=== PATIENT | female | born 1945 | race Two or more races ===

== ENCOUNTER 2016-10-25 10:40 | Emergency (ER) | payer MEDICARE, OTHER ==
--- NOTE | 2016-10-25 11:10 | ED ---
Upper Extremity HPI - General Chief Complaint: Extremity Injury, Upper Stated Complaint: VOLUNTEER, ARM INJURY Time Seen by Provider: 10/25/16 10:59 Source: patient, RN notes reviewed Mode of arrival: ambulatory Limitations: no limitations - History of Present Illness Initial Comments: 71-year-old female presents emergency Department chief complaint left arm injury. 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 Patient states she has a large area of bruising and pain when she presses on her arm. Patient states that she does take aspirin and a medication similar to Plavix she denies any Coumadin, Xarelto or LS or productive. Patient states she has full range of motion of her wrist and arm. Patient is applying ice at this time. - Related Data Home Medications Medication Instructions Recorded Confirmed Aspirin 81 mg PO DAILY 09/30/14 10/25/16 Cilostazol [Pletal] 100 mg PO BID 09/30/14 10/25/16 Simvastatin [Zocor] 40 mg PO W/SUPPER 09/30/14 10/25/16 Multivitamins, Thera [Theragran] 1 tab PO DAILY 07/12/15 10/25/16 Naproxen Sodium [Aleve] 220 mg PO BID PRN 07/12/15 10/25/16 Acetaminophen Tab [Tylenol Tab] 650 mg PO Q6H PRN 07/24/16 10/25/16 Atenolol [Tenormin] 50 mg PO DAILY 10/25/16 10/25/16 Allergies Allergy/AdvReac Type Severity Reaction Status Date / Time ciprofloxacin [From Cipro] Allergy Itching, Verified 10/25/16 11:19 rash ciprofloxacin HCl Allergy Itching, Verified 10/25/16 11:19 [From Cipro] rash RX FOR PSORIATIC ARTHRITIS AdvReac Severe COLD, Uncoded 07/24/16 11:46 SHIVERING, SHAKING Review of Systems ROS Statement: Those systems with pertinent positive or pertinent negative responses have been documented in the HPI. ROS Other: All systems not noted in ROS Statement are negative. Past Medical History Past Medical History: GERD/Reflux, Hyperlipidemia, Skin Disorder, Vascular Disorder Additional Past Medical History / Comment(s): PVD,ECZEMA,constipation, varicose veins, "intestinal blockage", arthritis, DVT-1999 History of Any Multi-Drug Resistant Organisms: None Reported Past Surgical History: Appendectomy, Cholecystectomy, Orthopedic Surgery, Tonsillectomy Additional Past Surgical History / Comment(s): PVD SURGERY-POST SURGERY HAD CLOT IN LEG AND DRAIN HAD TO BE INSERTED, left knee arthroscopy, radha carpal tunnel Past Anesthesia/Blood Transfusion Reactions: No Reported Reaction Past Psychological History: No Psychological Hx Reported Smoking Status: Former smoker Past Alcohol Use History: None Reported Additional Past Alcohol Use History / Comment(s): QUIT SMOKING 1999, STARTED SMOKING AT AGE 15 Past Drug Use History: None Reported - Past Family History Father Family Medical History: Cancer Additional Family Medical History / Comment(s): COLON CANCER Brother(s) Family Medical History: Coronary Artery Disease (CAD) Additional Family Medical History / Comment(s): EMPHYSEMA Mother Family Medical History: Dementia Additional Family Medical History / Comment(s): ALZHEIMERS General Exam Limitations: no limitations General appearance: alert, in no apparent distress Head exam: Present: atraumatic, normocephalic, normal inspection Respiratory exam: Present: normal lung sounds bilaterally. Absent: respiratory distress, wheezes, rales, rhonchi, stridor Cardiovascular Exam: Present: regular rate, normal rhythm, normal heart sounds. Absent: systolic murmur, diastolic murmur, rubs, gallop, clicks Extremities exam: Present: other (Left forearm there is a large hematoma noted there is mildly tender patient has full range of motion of left arm and wrist patient has good pronation and supination with no pain.) Skin exam: Present: warm, dry Course Vital Signs 10/25/16 10:55 Temperature 97.4 F L Pulse Rate 78 Respiratory 20 Rate Blood Pressure 128/73 O2 Sat by Pulse 99 Oximetry Medical Decision Making - Medical Decision Making 69-year-old female presented for left arm injury. Patient has a hematoma no acute fracture. Disposition Clinical Impression: Hematoma of arm Disposition: HOME SELF-CARE Condition: Stable Instructions: Hematoma (ED) Additional Instructions: Please return to the Emergency Department if symptoms worsen or any other concerns. Time of Disposition: 11:45
--- NOTE | 2016-10-25 11:26 | XR ---
Left forearm HISTORY: Trauma and pain 2 views of the left forearm No comparisons There is soft tissue swelling present. Bone mineralization is reduced. Alignment and joint spaces are maintained. IMPRESSION: No fracture or dislocation. Soft tissue swelling.
[2016-10-25 12:19] VITALS: BP 156/67; PULSE 66; RESP 18; TEMP 98.5
== END 2016-10-25 12:20 | disposition home or self-care (01) ==
LOC: EC 10:40
DX: S50.12XA Contusion of left forearm, initial encounter (principal); E78.5 Hyperlipidemia, unspecified; Z86.718 Personal history of other venous thrombosis and embolism; Z87.891 Personal history of nicotine dependence; Z79.82 Long term (current) use of aspirin; Z79.899 Other long term (current) drug therapy; Z88.1 Allergy status to other antibiotic agents; Z88.8 Allergy status to other drugs, medicaments and biological substances; W22.8XXA Striking against or struck by other objects, initial encounter
CPT/HCPCS: 99283

== ENCOUNTER → 2017-06-10 | Outpatient (CLI) | payer MEDICARE ==
--- NOTE | 2017-06-10 09:40 | MM ---
Reason for exam: additional evaluation requested from prior study. Last mammogram was performed 11 months ago. History: Patient is postmenopausal. Excisional biopsy of the left breast, 2005. Physical Findings: Nurse did not find any significant physical abnormalities on exam. MG 3D Diag Mammo W/Cad ALIRIO Bilateral CC and MLO view(s) were taken. Prior study comparison: July 02, 2016, left breast MG 3d diag mammo w/cad LT. December 30, 2015, bilateral MG diagnostic mammo w CAD ALIRIO. The breast tissue is heterogeneously dense. This may lower the sensitivity of mammography. Stable benign calcifications. No significant new findings when compared with previous films. These results were verbally communicated with the patient and result sheet given to the patient on 06/10/17. ASSESSMENT: Benign, BI-RAD 2 RECOMMENDATION: Routine screening mammogram of both breasts in 1 year.
== END | disposition home or self-care (01) ==
LOC: RADMAMWWP 08:50
PROVIDERS: ATTEND Family Medicine
DX: N63.0 Unspecified lump in unspecified breast (principal)
CPT/HCPCS: G0204; G0279

== ENCOUNTER 2017-10-03 10:08 | Day surgery (SDC) | payer MEDICARE ==
[2017-10-01 13:35] VITALS: BMI 27.8
[~2017-10-03 10:08] MED LIST: LACTATED RINGERS 1,000 ML IV SCH
[2017-10-03 11:05] VITALS: RESP 16; TEMP 98.1
[2017-10-03] MEDS ORDERED: LIDOCAINE 1% 20 ML VIAL (10MG/ML) FOR IV START INTRADERMA ONE (11:29)
[2017-10-03] MEDS ORDERED: PROPOFOL 10 MG/ML 20 ML VIAL IV ONE (11:45)
[2017-10-03] MEDS ORDERED: LIDOCAINE 1% INJ 10MG/ML (20 ML MDV) ONE (11:45)
--- NOTE | 2017-10-03 11:50 | P.GSHP ---
History of Present Illness H&P Date: 10/03/17 Chief Complaint: GI bleed, GERD This is a 72-year-old female for from Dr. Mccollum. Patient is today for EGD and colonoscopy. She has issues with GERD and GI bleed. 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 on legs History of Any Multi-Drug Resistant Organisms: None Reported Past Surgical History: Appendectomy, Cholecystectomy, Orthopedic Surgery, Tonsillectomy Additional Past Surgical History / Comment(s): stent radha legs, bypass surgery left legs-POST SURGERY HAD CLOT IN LEFT LEG AND DRAIN HAD TO BE INSERTED, left knee arthroscopy, radha carpal tunnel, radha cataracts Past Anesthesia/Blood Transfusion Reactions: No Reported Reaction Smoking Status: Former smoker - Past Family History Father Family Medical History: Cancer Additional Family Medical History / Comment(s): COLON CANCER Brother(s) Family Medical History: Coronary Artery Disease (CAD) Additional Family Medical History / Comment(s): EMPHYSEMA Mother Family Medical History: Dementia Additional Family Medical History / Comment(s): ALZHEIMERS Medications and Allergies Home Medications Medication Instructions Recorded Confirmed Type Aspirin 81 mg PO DAILY 09/30/14 10/01/17 History Cilostazol [Pletal] 100 mg PO BID 09/30/14 10/01/17 History Simvastatin [Zocor] 40 mg PO HS 09/30/14 10/01/17 History Multivitamins, Thera [Theragran] 1 tab PO HS 07/12/15 10/01/17 History Naproxen Sodium [Aleve] 220 mg PO BID PRN 07/12/15 10/01/17 History Cyanocobalamin [Vitamin B-12] 500 mcg PO DAILY 10/01/17 10/01/17 History Metoprolol Tartrate 25 mg PO HS 10/01/17 10/01/17 History amLODIPine [Norvasc] 10 mg PO DAILY 10/01/17 10/01/17 History Allergies Allergy/AdvReac Type Severity Reaction Status Date / Time ciprofloxacin [From Cipro] Allergy Itching, Verified 10/03/17 10:53 rash RX FOR PSORIATIC ARTHRITIS AdvReac Severe COLD, Uncoded 10/03/17 10:53 SHIVERING, SHAKING Surgical - Exam Vital Signs Temp Pulse Resp BP Pulse Ox 98.1 F 84 16 117/76 97 10/03/17 11:02 10/03/17 11:02 10/03/17 11:02 10/03/17 11:02 10/03/17 11:02 - General well developed, well nourished, no distress - Eyes PERRL - ENT normal pinna - Neck no masses - Respiratory normal expansion - Cardiovascular Rhythm: regular - Abdomen Abdomen: soft, non tender Assessment and Plan Assessment: GERD, GI bleed. We'll perform EGD and colonoscopy.
--- NOTE | 2017-10-03 12:02 | P.OP ---
Date of Procedure: 10/03/17 Preoperative Diagnosis: GERD GI bleed Postoperative Diagnosis: Antral gastritis Moderate size hiatal hernia Esophagitis Procedure(s) Performed: EGD Colonoscopy Anesthesia: MAC Surgeon: Andrew Patel Pathology: other (Antrum, esophagus) Condition: stable Disposition: PACU Description of Procedure: The patient's placed on the endoscopy table lateral position. She received IV sedation. The gastroscope placed oropharynx and passed in the esophagus and into the stomach. Scope was then placed through the pylorus. The first and second portion of the duodenum appeared normal. Scope was then brought back the antrum and this appeared mildly inflamed. A biopsies performed. The scope was then retroflexed and the remainder of the stomach appeared normal. There was a moderate size hiatal hernia. The GE junction was at 38 cm. The distal esophagus appeared mildly inflamed a biopsies performed. The proximal esophagus appeared normal. The scope was withdrawn for patient. Next digital rectal exam was performed. There is no abnormalities seen. The flexible colonoscope was then placed patient anus passed throughout the entire colon. The patient a previous colorectal anastomosis from a low anterior section. The anastomosis was visualized and appeared normal. Scope was then placed in the cecum. The cecum, ascending and transverse colon appeared normal. In the descending colon was a few scattered diverticula. Scope was then brought back the rectum and this appeared normal. Scope was withdrawn for patient.
[2017-10-03 12:29] VITALS: BP 115/66; PULSE 88
== END 2017-10-03 12:53 | disposition home or self-care (01) ==
LOC: ORWHC2ENDO 10:08
PROVIDERS: ATTEND Surgery
DX: K29.51 Unspecified chronic gastritis with bleeding (principal); K44.9 Diaphragmatic hernia without obstruction or gangrene; K21.0 Gastro-esophageal reflux disease with esophagitis; M19.90 Unspecified osteoarthritis, unspecified site; K57.30 Diverticulosis of large intestine without perforation or abscess without bleeding; E78.5 Hyperlipidemia, unspecified; I10 Essential (primary) hypertension; I73.9 Peripheral vascular disease, unspecified; Z86.718 Personal history of other venous thrombosis and embolism; Z90.49 Acquired absence of other specified parts of digestive tract; Z87.891 Personal history of nicotine dependence; Z80.0 Family history of malignant neoplasm of digestive organs; Z79.82 Long term (current) use of aspirin; Z79.899 Other long term (current) drug therapy; Z82.49 Family history of ischemic heart disease and other diseases of the circulatory system; Z98.0 Intestinal bypass and anastomosis status
CPT/HCPCS: 88305; 45378; 43239; J2001; J2704

== ENCOUNTER 2018-01-12 14:04 | Inpatient (IN) | payer MEDICARE ==
[2018-01-12] MEDS ORDERED: SODIUM CHLORIDE 0.9% 1,000 ML IV STA (14:50)
--- NOTE | 2018-01-12 14:53 | ED ---
General Adult HPI - General Chief complaint: GI Bleed Stated complaint: Poss Blood Clot Time Seen by Provider: 01/12/18 14:37 Source: patient, RN notes reviewed Mode of arrival: ambulatory Limitations: no limitations - History of Present Illness Initial comments: 72-year-old female presenting to the emergency room today with a chief complaint of dark stools. Patient does admit that last night she follow-up the family doctor for an upper respiratory infection. She states that she had blood work obtained. She states that she was told that she was anemic and given 2 units of blood. She states that since receiving blood she's had loose stools that have been dark over the last 2 days. Patient admitted to some dizziness but states that she has this every now and then. She denies any pain. Patient currently treated with antibiotics and steroids for upper respiratory infection. Denies any other complaints. Patient denies any recent fever, chills, shortness of breath, chest pain, back pain, abdominal pain, nausea or vomiting, numbness or tingling, dysuria or hematuria, constipation, headaches or visual changes, or any other complaints. - Related Data Home Medications Medication Instructions Recorded Confirmed Aspirin 81 mg PO DAILY 09/30/14 01/12/18 Cilostazol [Pletal] 100 mg PO BID 09/30/14 01/12/18 Simvastatin [Zocor] 40 mg PO DAILY 09/30/14 01/12/18 Multivitamins, Thera [Theragran] 1 tab PO DAILY 07/12/15 01/12/18 Cyanocobalamin [Vitamin B-12] 500 mcg PO DAILY 10/01/17 01/12/18 Metoprolol Tartrate 25 mg PO DAILY 10/01/17 01/12/18 amLODIPine [Norvasc] 10 mg PO DAILY 10/01/17 01/12/18 Azithromycin [Zithromax Z-pack] See Taper PO DAILY 01/12/18 01/12/18 Fluticasone/Vilanterol [Breo 1 puff INHALATION RT-DAILY 01/12/18 01/12/18 Ellipta 100-25 Mcg Inhaler] methylPREDNISolone Dose Pack See Taper PO DIRECTED 01/12/18 01/12/18 [Medrol Dose Pack] Allergies Allergy/AdvReac Type Severity Reaction Status Date / Time ciprofloxacin [From Cipro] Allergy Itching, Verified 01/12/18 14:42 rash RX FOR PSORIATIC ARTHRITIS AdvReac Severe COLD, Uncoded 01/12/18 14:18 SHIVERING, SHAKING Review of Systems ROS Statement: Those systems with pertinent positive or pertinent negative responses have been documented in the HPI. ROS Other: All systems not noted in ROS Statement are negative. Past Medical History Past Medical History: Blood Disorder, Deep Vein Thrombosis (DVT), GERD/Reflux, Hyperlipidemia, Hypertension, Skin Disorder, Vascular Disorder Additional Past Medical History / Comment(s): PVD,ECZEMA,constipation, varicose veins, "intestinal blockage", arthritis, DVT-2000 after bypass surgery on legs. HEART MURMUR. ANEMIA History of Any Multi-Drug Resistant Organisms: None Reported Past Surgical History: Appendectomy, Bowel Resection, Cholecystectomy, Orthopedic Surgery, Tonsillectomy Additional Past Surgical History / Comment(s): stent radha legs, bypass surgery left legs-POST SURGERY HAD CLOT IN LEFT LEG AND DRAIN HAD TO BE INSERTED, left knee arthroscopy, radha carpal tunnel, radha cataracts Past Anesthesia/Blood Transfusion Reactions: No Reported Reaction Past Psychological History: Anxiety Smoking Status: Former smoker Past Alcohol Use History: None Reported Past Drug Use History: None Reported - Past Family History Father Family Medical History: Cancer Additional Family Medical History / Comment(s): COLON CANCER Brother(s) Family Medical History: Coronary Artery Disease (CAD) Additional Family Medical History / Comment(s): EMPHYSEMA Mother Family Medical History: Dementia Additional Family Medical History / Comment(s): ALZHEIMERS General Exam - General Exam Comments Initial Comments: General: The patient is awake and alert, in no distress, and does not appear acutely ill. Eye: Pupils are equal, round and reactive to light, extra-ocular movements are intact. No nystagmus. There is normal conjunctiva bilaterally. No signs of icterus. Ears, nose, mouth and throat: There are moist mucous membranes and no oral lesions. Neck: The neck is supple, there is no tenderness or JVD. Cardiovascular: There is a regular rate and rhythm. No murmur, rub or gallop is appreciated. Respiratory: Lungs are clear to auscultation, respirations are non-labored, breath sounds are equal. No wheezes, stridor, rales, or rhonchi. Gastrointestinal: Soft, non-distended, non-tender abdomen without masses or organomegaly noted. There is no rebound or guarding present. No CVA tenderness. Musculoskeletal: Normal ROM, no tenderness. Strength 5/5. Sensation intact. Pulses equal bilaterally 2+. Neurological: A&O x 3. CN II-XII intact, There are no obvious motor or sensory deficits. Coordination appears grossly intact. Speech is normal. Skin: Skin is warm and dry and no rashes or lesions are noted. Psychiatric: Cooperative, appropriate mood & affect, normal judgment. : IT SPECIALIST ritual present for exam. Normal rectal tone. No bright red blood per rectum. Limitations: no limitations Course Vital Signs 01/12/18 01/12/18 01/12/18 14:15 16:02 16:12 Temperature 98.1 F Pulse Rate 104 H 100 Pulse Rate [ 99 Sitting] Pulse Rate [ 101 H Standing] Pulse Rate [ 98 Supine] Respiratory 18 18 Rate Blood Pressure 122/69 140/64 Blood Pressure 136/63 [Sitting] Blood Pressure 137/63 [Standing] Blood Pressure 129/59 [Supine] O2 Sat by Pulse 98 95 Oximetry Medical Decision Making - Medical Decision Making Patient's labs been reviewed does show hemoglobin 8.2. Patient is not feeling dizzy lightheaded at times. Orthostatics are negative here in The emergency room. Patient did have 2 units of blood given 2 days ago. Occult positive. Will be admitted to the hospital for GI bleed with consults to GI and hematology - Lab Data Result diagrams: 01/12/18 14:53 01/12/18 14:53 Lab Results 01/12/18 01/12/18 01/12/18 Range/Units 14:50 14:53 14:53 WBC 10.7 H (3.8-10.6) k/uL RBC 4.07 (3.80-5.40) m/uL Hgb 8.2 L D (11.4-16.0) gm/dL Hct 27.7 L (34.0-46.0) % MCV 68.1 L D (80.0-100.0) fL MCH 20.2 L (25.0-35.0) pg MCHC 29.7 L (31.0-37.0) g/dL RDW 23.4 H (11.5-15.5) % Plt Count 685 H (150-450) k/uL Neutrophils % 80 % Lymphocytes % 12 % Monocytes % 7 % Eosinophils % 0 % Basophils % 0 % Neutrophils # 8.5 H (1.3-7.7) k/uL Lymphocytes # 1.3 (1.0-4.8) k/uL Monocytes # 0.7 (0-1.0) k/uL Eosinophils # 0.0 (0-0.7) k/uL Basophils # 0.0 (0-0.2) k/uL Hypochromasia Marked Poikilocytosis Marked Anisocytosis Moderate Microcytosis Marked Sodium 144 (137-145) mmol/L Potassium 4.0 (3.5-5.1) mmol/L Chloride 103 (98-107) mmol/L Carbon Dioxide 25 (22-30) mmol/L Anion Gap 16 mmol/L BUN 9 (7-17) mg/dL Creatinine 0.60 (0.52-1.04) mg/dL Est GFR (CKD-EPI)AfAm >90 (>60 ml/min/1.73 sqM) Est GFR (CKD-EPI)NonAf >90 (>60 ml/min/1.73 sqM) Glucose 112 H (74-99) mg/dL Calcium 9.3 (8.4-10.2) mg/dL Total Bilirubin 0.3 (0.2-1.3) mg/dL AST 31 (14-36) U/L ALT 35 (9-52) U/L Alkaline Phosphatase 84 (38-126) U/L Total Protein 6.9 (6.3-8.2) g/dL Albumin 4.2 (3.5-5.0) g/dL Stool Occult Blood Positive H (Negative) Disposition Clinical Impression: GI bleed, Anemia Disposition: ADMITTED IP TO THIS [facility] Condition: Stable Instructions: Gastrointestinal Bleeding (ED) Is patient prescribed a controlled substance at d/c from ED?: No Referrals: Arvind Mccollum DO [Primary Care Provider] - 1-2 days Time of Disposition: 16:53
[2018-01-12 15:03] LABS: Anisocytosis Moderate; Basophils % (A) 0 %; Eosinophils % (A) 0 %; HCT 27.7 % (34.0-46.0); Hypochromasia Marked; Lymphocytes # (A) 1.3 k/uL (1.0-4.8); Lymphocytes % (A) 12 %; MCH 20.2 pg (25.0-35.0); MCHC 29.7 g/dL (31.0-37.0); Mean Platelet Volume 6.1; Microcytosis Marked; Monocytes # (A) 0.7 k/uL (0-1.0); Monocytes % (A) 7 %; Neutrophils # (A) 8.5 k/uL (1.3-7.7); Neutrophils % (A) 80 %; Platelet Count 685 k/uL (150-450); Poikilocytosis Marked; RBC 4.07 m/uL (3.80-5.40); RDW 23.4 % (11.5-15.5); WBC 10.7 k/uL (3.8-10.6)
[2018-01-12 15:06] LABS: HGB 8.2 gm/dL (11.4-16.0)
[2018-01-12 15:07] LABS: MCV 68.1 fL (80.0-100.0)
[2018-01-12 15:16] LABS: ALT 35 U/L (9-52); AST 31 U/L (14-36); Albumin 4.2 g/dL (3.5-5.0); Alkaline Phosphatase 84 U/L (38-126); Anion Gap 16 mmol/L; Blood Urea Nitrogen 9 mg/dL (7-17); Calcium 9.3 mg/dL (8.4-10.2); Carbon Dioxide 25 mmol/L (22-30); Chloride 103 mmol/L (98-107); Glucose 112 mg/dL (74-99); Sodium 144 mmol/L (137-145); Total Bilirubin 0.3 mg/dL (0.2-1.3); Total Protein 6.9 g/dL (6.3-8.2)
[2018-01-12] MEDS ORDERED: ONDANSETRON 4 MG/2 ML VIAL IVP PRN (16:48)
[2018-01-12] MEDS ORDERED: TEMAZEPAM 15 MG CAP PO PRN (16:48)
[2018-01-12] MEDS ORDERED: NALOXONE 0.4 MG/ML 1 ML VIAL IV PRN (16:48)
[2018-01-12] MEDS ORDERED: ACETAMINOPHEN TAB 325 MG TAB PO PRN (16:48)
[2018-01-12] MEDS ORDERED: LORazepam 2 MG/ML INJ IV PRN (16:48)
[2018-01-12] MEDS ORDERED: SODIUM CHLORIDE 0.9% 1,000 ML IV ONE (16:48)
[2018-01-12] MEDS ORDERED: PANTOPRAZOLE 40 MG/10 ML VIAL IVP STA (16:51)
[2018-01-12 18:01] VITALS: BMI 27.8
[2018-01-12 20:39] LABS: Appearance,Urine Clear (Clear); Bilirubin,Urine Negative (Negative); Blood,Urine Negative (Negative); Color,Urine Light Yellow; Glucose,Urine (UA) Negative (Negative); Ketones,Urine Negative (Negative); Leukocyte Esterase,Urine Negative (Negative); Nitrite,Urine Negative (Negative); Protein,Urine Negative (Negative); Specific Gravity,Urine 1.005 (1.001-1.035); Urobilinogen,Urine <2.0 mg/dL (<2.0)
[2018-01-12 21:19] LABS: Anisocytosis Marked; HCT 24.7 % (34.0-46.0); HGB 7.3 gm/dL (11.4-16.0); Hypochromasia Marked; MCH 20.2 pg (25.0-35.0); MCHC 29.6 g/dL (31.0-37.0); MCV 68.4 fL (80.0-100.0); Mean Platelet Volume 6.5; Microcytosis Marked; Platelet Count 500 k/uL (150-450); Poikilocytosis Marked; WBC 8.9 k/uL (3.8-10.6)
[2018-01-13] MEDS ORDERED: PANTOPRAZOLE 40 MG/10 ML VIAL IVP SCH (09:00)
[2018-01-13 09:13] LABS: Anisocytosis Moderate; Basophils % (A) 0 %; Eosinophils # (A) 0.1 k/uL (0-0.7); Eosinophils % (A) 1 %; HGB 7.9 gm/dL (11.4-16.0); Hypochromasia Marked; Lymphocytes # (A) 1.5 k/uL (1.0-4.8); Lymphocytes % (A) 22 %; MCH 19.7 pg (25.0-35.0); MCHC 28.1 g/dL (31.0-37.0); Mean Platelet Volume 6.4; Microcytosis Marked; Monocytes # (A) 0.5 k/uL (0-1.0); Monocytes % (A) 7 %; Neutrophils # (A) 4.4 k/uL (1.3-7.7); Neutrophils % (A) 67 %; Platelet Count 569 k/uL (150-450); Poikilocytosis Marked; RDW 23.8 % (11.5-15.5); WBC 6.6 k/uL (3.8-10.6)
[2018-01-13] MEDS ORDERED: PEG 3350-NA SULF,BICARB,CL/KCL 4,000 ML BOTTLE PO ONE (09:15)
[2018-01-13 09:42] LABS: ALT 44 U/L (9-52); AST 27 U/L (14-36); Albumin 3.6 g/dL (3.5-5.0); Alkaline Phosphatase 72 U/L (38-126); Anion Gap 11 mmol/L; Blood Urea Nitrogen 5 mg/dL (7-17); Calcium 8.6 mg/dL (8.4-10.2); Carbon Dioxide 28 mmol/L (22-30); Chloride 107 mmol/L (98-107); Glucose 78 mg/dL (74-99); Sodium 146 mmol/L (137-145); Total Bilirubin 0.4 mg/dL (0.2-1.3)
--- NOTE | 2018-01-13 13:10 | P.HPIM ---
History of Present Illness H&P Date: 01/13/18 Chief Complaint: Dark Stools 72-year-old female who presented to the emergency room with a chief complaint of dark stools. The patient was seen and evaluated by her PCP, Dr. Mccollum on 01/09/2018 for a chief complaint of shortness of breath. She was diagnosed with a upper respiratory infection and prescribed steroids and antibiotics. Blood work was also completed which revealed a hemoglobin of 5.5. The patient was notified the following morning and she came to the [facility] for a transfusion of two units packed RBCs. The patient was not admitted at that time because she denied any other symptoms and had recently undergone EGD/colonoscopy in October 2017. She denied dark stools last week but states she recently started having dark stools over the last 1-2 days. She denies nausea or vomiting. Denies chest pain or pressure. She does report some shortness of breath with exertion. Denies fever or chills. EGD/Colonoscopy 10/03/2017: Antral gastritis, moderate size hiatal hernia, esophagitis. In the descending colon, a few scattered diverticula were visualized. No acute bleeding was noted. Pathology results revealed: Mild chronic gastritis and benign squamous esophageal mucosa The patient has a history of deep vein thrombosis, gastroesophageal reflux disease, hyperlipidemia, hypertension, peripheral vascular disease, eczema, and anxiety. The patient is a former cigarette smoker. She started smoking at age 17 and quit in 1999. She is and lives with her . Her does have dementia with occasional aggressive and threatening behavior. The patient was admitted to [facility] last year due to a suicide attempt that the patient reports is due to the stress of her and his dementia. Laboratory data: WBC 10.7. Hemoglobin 8.2. Platelet count 685. Sodium 144. Potassium 4.0. BUN 9. Creatinine 0.60. Glucose 112. Urinalysis is unremarkable. Stool for occult blood: Positive The patient was admitted to the hospital under the care of Dr. Mccollum. Consultations were placed to Dr. Patel, general surgery, and Dr. Ashley, hematology.. Review of Systems Those systems with pertinent positive or pertinent negative responses have been documented in the HPI Past Medical History Past Medical History: Deep Vein Thrombosis (DVT), GERD/Reflux, Hyperlipidemia, Hypertension, Skin Disorder, Vascular Disorder Additional Past Medical History / Comment(s): PVD,ECZEMA,constipation, varicose veins, "intestinal blockage", arthritis, DVT-1999 after bypass surgery on legs. HEART MURMUR. ANEMIA History of Any Multi-Drug Resistant Organisms: None Reported Past Surgical History: Appendectomy, Bowel Resection, Cholecystectomy, Orthopedic Surgery, Tonsillectomy Additional Past Surgical History / Comment(s): stent radha legs, bypass surgery left legs-POST SURGERY HAD CLOT IN LEFT LEG AND DRAIN HAD TO BE INSERTED, left knee arthroscopy, radha carpal tunnel, radha cataracts/r shoulder Past Anesthesia/Blood Transfusion Reactions: No Reported Reaction Past Psychological History: Anxiety Smoking Status: Former smoker Past Alcohol Use History: None Reported Additional Past Alcohol Use History / Comment(s): QUIT SMOKING 1999, STARTED SMOKING AT AGE 15 Past Drug Use History: None Reported - Past Family History Father Family Medical History: Cancer Additional Family Medical History / Comment(s): COLON CANCER Brother(s) Family Medical History: Coronary Artery Disease (CAD) Additional Family Medical History / Comment(s): EMPHYSEMA Mother Family Medical History: Dementia Additional Family Medical History / Comment(s): ALZHEIMERS Medications and Allergies Home Medications Medication Instructions Recorded Confirmed Type Aspirin 81 mg PO DAILY 09/30/14 01/12/18 History Cilostazol [Pletal] 100 mg PO BID 09/30/14 01/12/18 History Simvastatin [Zocor] 40 mg PO DAILY 09/30/14 01/12/18 History Multivitamins, Thera [Theragran] 1 tab PO DAILY 07/12/15 01/12/18 History Cyanocobalamin [Vitamin B-12] 500 mcg PO DAILY 10/01/17 01/12/18 History Metoprolol Tartrate 25 mg PO DAILY 10/01/17 01/12/18 History amLODIPine [Norvasc] 10 mg PO DAILY 10/01/17 01/12/18 History Azithromycin [Zithromax Z-pack] See Taper PO DAILY 01/12/18 01/12/18 History Fluticasone/Vilanterol [Breo 1 puff INHALATION RT-DAILY 01/12/18 01/12/18 History Ellipta 100-25 Mcg Inhaler] methylPREDNISolone Dose Pack See Taper PO DIRECTED 01/12/18 01/12/18 History [Medrol Dose Pack] Allergies Allergy/AdvReac Type Severity Reaction Status Date / Time ciprofloxacin [From Cipro] Allergy Itching, Verified 01/12/18 14:42 rash RX FOR PSORIATIC ARTHRITIS AdvReac Severe COLD, Uncoded 01/12/18 14:18 SHIVERING, SHAKING Physical Exam Vitals: Vital Signs Temp Pulse Pulse Pulse Pulse Resp BP 01/13/18 06:39 97.3 F L 82 20 01/13/18 00:00 18 01/12/18 23:00 98.1 F 79 18 01/12/18 17:40 98.5 F 105 H 18 01/12/18 17:19 108 H 16 140/64 01/12/18 16:12 100 18 140/64 01/12/18 16:02 99 101 H 98 01/12/18 14:15 98.1 F 104 H 18 122/69 BP BP BP Pulse Ox 01/13/18 06:39 140/71 96 01/13/18 00:00 01/12/18 23:00 105/54 91 L 01/12/18 17:40 134/69 99 01/12/18 17:19 95 01/12/18 16:12 95 01/12/18 16:02 136/63 137/63 129/59 01/12/18 14:15 98 Intake and Output 01/12/18 01/13/18 01/13/18 22:59 06:59 14:59 Other: # Voids 1 1 2 # Bowel Movements 1 0 Weight 62.596 kg GENERAL: This is a 72-year-old female in no apparent distress at the time of examination. Pleasant and cooperative. HEENT: Head is atraumatic, normocephalic. Pupils are equal, round, and reactive to light. Sclerae anicteric. Conjunctivae are clear. Mucus membranes of the mouth are moist. Neck is supple. RESPIRATORY: Clear to ausculation. No wheezes, rales, or rhonchi. No use of accessory muscles. Patient maintaining oxygen saturation greater than 92%. No chest wall tenderness is noted on palpation or with deep breathing. CARDIOVASCULAR: Regular rate and rhythm. S1 and S2 noted. No systolic or diastolic murmur auscultated. No JVD noted. No S3 or S4 noted. GASTROINTESTINAL: Dark stool noted in toilet. No anju blood noted. No distention noted. Abdomen soft and round. Normal active bowel sounds auscultated x 4 quadrants. No pain or tenderness noted upon palpation. INTEGUMENTARY: No cyanosis. No jaundice. No rashes noted. No cellulitis noted. EXTREMITIES: 2+ peripheral pulses. No evidence of peripheral edema. No calf tenderness noted. NEUROLOGIC: Cranial nerves II-XII intact. PSYCHIATRIC: Awake, alert, and oriented X 3. Appropriate affect. Intact judgement and insight. Results CBC & Chem 7: 01/13/18 08:55 01/13/18 08:55 Labs: Abnormal Lab Results - Last 24 Hours (Table) 01/12/18 01/12/18 01/12/18 Range/Units 14:50 14:53 14:53 WBC 10.7 H (3.8-10.6) k/uL RBC (3.80-5.40) m/uL Hgb 8.2 L D (11.4-16.0) gm/dL Hct 27.7 L (34.0-46.0) % MCV 68.1 L D (80.0-100.0) fL MCH 20.2 L (25.0-35.0) pg MCHC 29.7 L (31.0-37.0) g/dL RDW 23.4 H (11.5-15.5) % Plt Count 685 H (150-450) k/uL Neutrophils # 8.5 H (1.3-7.7) k/uL Sodium (137-145) mmol/L BUN (7-17) mg/dL Glucose 112 H (74-99) mg/dL Total Protein (6.3-8.2) g/dL Stool Occult Blood Positive H (Negative) 01/12/18 01/13/18 01/13/18 Range/Units 20:53 08:55 08:55 WBC (3.8-10.6) k/uL RBC 3.60 L (3.80-5.40) m/uL Hgb 7.3 L 7.9 L (11.4-16.0) gm/dL Hct 24.7 L 28.0 L (34.0-46.0) % MCV 68.4 L 70.0 L (80.0-100.0) fL MCH 20.2 L 19.7 L (25.0-35.0) pg MCHC 29.6 L 28.1 L (31.0-37.0) g/dL RDW 24.0 H 23.8 H (11.5-15.5) % Plt Count 500 H 569 H (150-450) k/uL Neutrophils # (1.3-7.7) k/uL Sodium 146 H (137-145) mmol/L BUN 5 L (7-17) mg/dL Glucose (74-99) mg/dL Total Protein 6.0 L (6.3-8.2) g/dL Stool Occult Blood (Negative) Thrombosis Risk Factor Assmnt - Choose All That Apply Any of the Below Risk Factors Present?: No Other Risk Factors: Yes Each Risk Factor Represents 2 Points: Age 61-74 years Thrombosis Risk Factor Assessment Total Risk Factor Score: 2 Thrombosis Risk Factor Assessment Level: Low Risk Assessment and Plan Plan: ASSESSMENT: Complaints of dark stools, shortness of breath, with stool positive for occult blood, suspect secondary to GI bleed Microcytic, hypochromic anemia with elevated RDW, suspect secondary to acute blood loss, S/P transfusion of 2 units packed RBCs 01/10/2018 Recent EGD and colonoscopy, 10/2017, revealing antral gastritis, moderate size hiatal hernia, esophagitis, and scattered diverticula History of deep vein thrombosis Gastroesophageal reflux disease Hyperlipidemia Hypertension Peripheral vascular disease Generalized anxiety disorder History of nicotine dependence, in remission, patient quit smoking in 1999 PLAN: Dr. Patel, general surgery, on consult. Appreciate recommendations and input Home meds as appropriate. Hold aspirin and pletal at this time Hematology on consult. Await further recommendations and input Obtain iron studies to rule out other causes of anemia Monitor labs GI prophylaxis: Protonix 40 mg IV BID DVT prophylaxis: SCDs to bilateral lower extremities while in bed Monitor vital signs and address as appropriate Discharge planning: Patient to return home when stable Further recommendations pending patient's course Nurse practitioner note has been reviewed by physician. Signing provider agrees with the documented findings, assessment, and plan of care.
--- NOTE | 2018-01-13 13:35 | P.GSCN ---
History of Present Illness Consult date: 01/13/18 History of present illness: 72-year-old female being seen at the request of the attending for a surgical eval in the female who developed symptomatic anemia dizziness lightheadedness shortness of breath. Patient stated that she did receive 2 units of packed red blood cells Saturday at the [facility] for hemoglobin of 5.5 as ordered by her primary care provider. Patient stated over the weekend continue do not feel good. Stated that she was having dark stools. [place] dizzy lightheaded with any exertion short of breath. Patient did undergo an EGD and a colonoscopy by Dr. chambers October 03 reviewing the records indicate the EGD showed moderate size hiatal hernia, esophagitis, antral gastritis colonoscopy was unremarkable patient Review of Systems Essentially unremarkable except as mentioned in the present illness Past Medical History Past Medical History: Deep Vein Thrombosis (DVT), GERD/Reflux, Hyperlipidemia, Hypertension, Skin Disorder, Vascular Disorder Additional Past Medical History / Comment(s): PVD,ECZEMA,constipation, varicose veins, "intestinal blockage", arthritis, DVT-1999 after bypass surgery on legs. HEART MURMUR. ANEMIA History of Any Multi-Drug Resistant Organisms: None Reported Past Surgical History: Appendectomy, Bowel Resection, Cholecystectomy, Orthopedic Surgery, Tonsillectomy Additional Past Surgical History / Comment(s): stent radha legs, bypass surgery left legs-POST SURGERY HAD CLOT IN LEFT LEG AND DRAIN HAD TO BE INSERTED, left knee arthroscopy, radha carpal tunnel, radha cataracts/r shoulder Past Anesthesia/Blood Transfusion Reactions: No Reported Reaction Past Psychological History: Anxiety Smoking Status: Former smoker Past Alcohol Use History: None Reported Additional Past Alcohol Use History / Comment(s): QUIT SMOKING 1999, STARTED SMOKING AT AGE 15 Past Drug Use History: None Reported - Past Family History Father Family Medical History: Cancer Additional Family Medical History / Comment(s): COLON CANCER Brother(s) Family Medical History: Coronary Artery Disease (CAD) Additional Family Medical History / Comment(s): EMPHYSEMA Mother Family Medical History: Dementia Additional Family Medical History / Comment(s): ALZHEIMERS Medications and Allergies Home Medications Medication Instructions Recorded Confirmed Type Aspirin 81 mg PO DAILY 09/30/14 01/12/18 History Cilostazol [Pletal] 100 mg PO BID 09/30/14 01/12/18 History Simvastatin [Zocor] 40 mg PO DAILY 09/30/14 01/12/18 History Multivitamins, Thera [Theragran] 1 tab PO DAILY 07/12/15 01/12/18 History Cyanocobalamin [Vitamin B-12] 500 mcg PO DAILY 10/01/17 01/12/18 History Metoprolol Tartrate 25 mg PO DAILY 10/01/17 01/12/18 History amLODIPine [Norvasc] 10 mg PO DAILY 10/01/17 01/12/18 History Azithromycin [Zithromax Z-pack] See Taper PO DAILY 01/12/18 01/12/18 History Fluticasone/Vilanterol [Breo 1 puff INHALATION RT-DAILY 01/12/18 01/12/18 History Ellipta 100-25 Mcg Inhaler] methylPREDNISolone Dose Pack See Taper PO DIRECTED 01/12/18 01/12/18 History [Medrol Dose Pack] Allergies Allergy/AdvReac Type Severity Reaction Status Date / Time ciprofloxacin [From Cipro] Allergy Itching, Verified 01/12/18 14:42 rash RX FOR PSORIATIC ARTHRITIS AdvReac Severe COLD, Uncoded 01/12/18 14:18 SHIVERING, SHAKING Surgical - Exam Vital Signs Temp Pulse Resp BP Pulse Ox 98.1 F 104 H 18 122/69 98 01/12/18 14:15 01/12/18 14:15 01/12/18 14:15 01/12/18 14:15 01/12/18 14:15 GENERAL APPEARANCE: 72-year-old patient is alert, talkative sitting up in bed drinking GoLYTELY bowel prep oriented, in no acute distress. VITAL SIGNS: Reviewed HEENT: Head is normocephalic and atraumatic. Pupils are equal and reactive. The nares are patent. Oropharynx is clear without lesions. NECK: Supple without lymphadenopathy. Traches midline. HEART: S1, S2. Regular rate and rhythm. Denying chest pain no murmur noted LUNGS: No crackles or wheezes are heard. Adequate air entry bilaterally ABDOMEN: Soft, nontender, nondistended with good bowel sounds. No peritoneal signs. No palpable organomegaly or masses. EXTREMITIES: Normal skin color and turgor. No cyanosis, rash, ulceration, clubbing or edema. Radial pedal pulses are 2/4 bilaterally. NEUROLOGICAL: No focal deficits. Strength and sensation are grossly intact. Results - Labs 01/13/18 08:55 01/13/18 08:55 Abnormal Lab Results - Last 24 Hours (Table) 01/12/18 01/12/18 01/12/18 Range/Units 14:50 14:53 14:53 WBC 10.7 H (3.8-10.6) k/uL RBC (3.80-5.40) m/uL Hgb 8.2 L D (11.4-16.0) gm/dL Hct 27.7 L (34.0-46.0) % MCV 68.1 L D (80.0-100.0) fL MCH 20.2 L (25.0-35.0) pg MCHC 29.7 L (31.0-37.0) g/dL RDW 23.4 H (11.5-15.5) % Plt Count 685 H (150-450) k/uL Neutrophils # 8.5 H (1.3-7.7) k/uL Sodium (137-145) mmol/L BUN (7-17) mg/dL Glucose 112 H (74-99) mg/dL Total Protein (6.3-8.2) g/dL Stool Occult Blood Positive H (Negative) 01/12/18 01/13/18 01/13/18 Range/Units 20:53 08:55 08:55 WBC (3.8-10.6) k/uL RBC 3.60 L (3.80-5.40) m/uL Hgb 7.3 L 7.9 L (11.4-16.0) gm/dL Hct 24.7 L 28.0 L (34.0-46.0) % MCV 68.4 L 70.0 L (80.0-100.0) fL MCH 20.2 L 19.7 L (25.0-35.0) pg MCHC 29.6 L 28.1 L (31.0-37.0) g/dL RDW 24.0 H 23.8 H (11.5-15.5) % Plt Count 500 H 569 H (150-450) k/uL Neutrophils # (1.3-7.7) k/uL Sodium 146 H (137-145) mmol/L BUN 5 L (7-17) mg/dL Glucose (74-99) mg/dL Total Protein 6.0 L (6.3-8.2) g/dL Stool Occult Blood (Negative) Diabetes panel 01/12/18 01/13/18 Range/Units 14:53 08:55 Sodium 144 146 H (137-145) mmol/L Potassium 4.0 4.0 (3.5-5.1) mmol/L Chloride 103 107 (98-107) mmol/L Carbon Dioxide 25 28 (22-30) mmol/L BUN 9 5 L (7-17) mg/dL Creatinine 0.60 0.58 (0.52-1.04) mg/dL Glucose 112 H 78 (74-99) mg/dL Calcium 9.3 8.6 (8.4-10.2) mg/dL AST 31 27 (14-36) U/L ALT 35 44 (9-52) U/L Alkaline Phosphatase 84 72 (38-126) U/L Total Protein 6.9 6.0 L (6.3-8.2) g/dL Albumin 4.2 3.6 (3.5-5.0) g/dL Calcium panel 01/12/18 01/13/18 Range/Units 14:53 08:55 Calcium 9.3 8.6 (8.4-10.2) mg/dL Albumin 4.2 3.6 (3.5-5.0) g/dL Pituitary panel 01/12/18 01/13/18 Range/Units 14:53 08:55 Sodium 144 146 H (137-145) mmol/L Potassium 4.0 4.0 (3.5-5.1) mmol/L Chloride 103 107 (98-107) mmol/L Carbon Dioxide 25 28 (22-30) mmol/L BUN 9 5 L (7-17) mg/dL Creatinine 0.60 0.58 (0.52-1.04) mg/dL Glucose 112 H 78 (74-99) mg/dL Calcium 9.3 8.6 (8.4-10.2) mg/dL Adrenal panel 01/12/18 01/13/18 Range/Units 14:53 08:55 Sodium 144 146 H (137-145) mmol/L Potassium 4.0 4.0 (3.5-5.1) mmol/L Chloride 103 107 (98-107) mmol/L Carbon Dioxide 25 28 (22-30) mmol/L BUN 9 5 L (7-17) mg/dL Creatinine 0.60 0.58 (0.52-1.04) mg/dL Glucose 112 H 78 (74-99) mg/dL Calcium 9.3 8.6 (8.4-10.2) mg/dL Total Bilirubin 0.3 0.4 (0.2-1.3) mg/dL AST 31 27 (14-36) U/L ALT 35 44 (9-52) U/L Alkaline Phosphatase 84 72 (38-126) U/L Total Protein 6.9 6.0 L (6.3-8.2) g/dL Albumin 4.2 3.6 (3.5-5.0) g/dL Assessment and Plan Assessment: Impression Present on admission symptomatic anemia suspect due to a GI source Anxiety unspecified disorder Esophageal reflux disease Anemia likely due to acute blood loss necessitating 2 units of packed red blood cells infused January 10 Recent October 03 EGD showed antral gastritis, moderate sized hiatal hernia, esophagitis Recent 10/03/2017 colonoscopy no acute findings Plan Scheduled for an EGD and a colonoscopy tomorrow morning per Dr. chambers bowel prep GoLYTELY as ordered Monitor hemoglobin attempt to keep greater than 8 DVT and GI prophylaxis Hematology Dr. Ashley consult for anemia workup pending Follow-up on iron studies Surgical consultation note dictated for dr chambers The above impression and plan of care have been discussed and directed by signing physician. Cheyenne Miller nurse practitioner acting as scribe for signing physician.
[2018-01-13 13:37] LABS: Reticulocyte % 1.7 % (0.5-2.0)
[2018-01-13] MEDS: METOPROLOL TARTRATE 25 MG TAB PO SCH (14:07)
--- NOTE | 2018-01-13 15:43 | P.CONS ---
History of Present Illness - Reason for Consult Consult date: 01/13/18 Anemia Requesting physician: Vin Barillas - Chief Complaint Dark Tarry Stools - History of Present Illness Carole is a 72 year old patient who recently presented to her PCP and found to have a hemoglobin of 5.5. She was symptomatic with complaints of dizziness, lightheadiness, and shortness of breath on exertion. She stated she started noticing dark tarry stools approximately 2-3 weeks prior, small amounts, following duration of constipation. Her PCP set her up to receive two units of PRBC, and she received on Saturday, although she persistently felt bad through the weekend, therefore presented to [facility] ED for further assessment. She denies nausea, vomiting, or abdominal pain. She denies any history of blood transfusion in the past. EGD/Colonoscopy 10/03/2017: Antral gastritis, moderate size hiatal hernia, esophagitis. Mentions of a few scattered diverticula in the descending Colon were mentioned. No acute bleeding was noted. Pathology results revealed: Mild chronic gastritis and benign squamous esophageal mucosa The patient has a history of deep vein thrombosis, GERD, hyperlipidemia, hypertension, peripheral vascular disease, eczema, and anxiety. She has a known history of depression and suicidal attempt requiring admission to [facility] last year, she states was because of the stress of her and his dementia. She does take Pletal and aspirin at home. Has bilateral stents in legs. Review of Systems A 14 point review of systems assessed and completed and all negative except HPI Past Medical History Past Medical History: Deep Vein Thrombosis (DVT), GERD/Reflux, Hyperlipidemia, Hypertension, Skin Disorder, Vascular Disorder Additional Past Medical History / Comment(s): PVD,ECZEMA,constipation, varicose veins, "intestinal blockage", arthritis, DVT-1999 after bypass surgery on legs. HEART MURMUR. ANEMIA History of Any Multi-Drug Resistant Organisms: None Reported Past Surgical History: Appendectomy, Bowel Resection, Cholecystectomy, Orthopedic Surgery, Tonsillectomy Additional Past Surgical History / Comment(s): stent radha legs, bypass surgery left legs-POST SURGERY HAD CLOT IN LEFT LEG AND DRAIN HAD TO BE INSERTED, left knee arthroscopy, radha carpal tunnel, radha cataracts/r shoulder Past Anesthesia/Blood Transfusion Reactions: No Reported Reaction Past Psychological History: Anxiety Smoking Status: Former smoker Past Alcohol Use History: None Reported Additional Past Alcohol Use History / Comment(s): QUIT SMOKING 1999, STARTED SMOKING AT AGE 15 Past Drug Use History: None Reported - Past Family History Father Family Medical History: Cancer Additional Family Medical History / Comment(s): COLON CANCER Brother(s) Family Medical History: Coronary Artery Disease (CAD) Additional Family Medical History / Comment(s): EMPHYSEMA Mother Family Medical History: Dementia Additional Family Medical History / Comment(s): ALZHEIMERS Medications and Allergies Home Medications Medication Instructions Recorded Confirmed Type Aspirin 81 mg PO DAILY 09/30/14 01/12/18 History Cilostazol [Pletal] 100 mg PO BID 09/30/14 01/12/18 History Simvastatin [Zocor] 40 mg PO DAILY 09/30/14 01/12/18 History Multivitamins, Thera [Theragran] 1 tab PO DAILY 07/12/15 01/12/18 History Cyanocobalamin [Vitamin B-12] 500 mcg PO DAILY 10/01/17 01/12/18 History Metoprolol Tartrate 25 mg PO DAILY 10/01/17 01/12/18 History amLODIPine [Norvasc] 10 mg PO DAILY 10/01/17 01/12/18 History Azithromycin [Zithromax Z-pack] See Taper PO DAILY 01/12/18 01/12/18 History Fluticasone/Vilanterol [Breo 1 puff INHALATION RT-DAILY 01/12/18 01/12/18 History Ellipta 100-25 Mcg Inhaler] methylPREDNISolone Dose Pack See Taper PO DIRECTED 01/12/18 01/12/18 History [Medrol Dose Pack] Allergies Allergy/AdvReac Type Severity Reaction Status Date / Time ciprofloxacin [From Cipro] Allergy Itching, Verified 01/12/18 14:42 rash RX FOR PSORIATIC ARTHRITIS AdvReac Severe COLD, Uncoded 01/12/18 14:18 SHIVERING, SHAKING Physical Exam Vitals: Vital Signs Temp Pulse Pulse Pulse Pulse Resp BP 01/13/18 14:00 97.7 F 97 20 01/13/18 06:39 97.3 F L 82 20 01/13/18 00:00 18 01/12/18 23:00 98.1 F 79 18 01/12/18 17:40 98.5 F 105 H 18 01/12/18 17:19 108 H 16 140/64 01/12/18 16:12 100 18 140/64 01/12/18 16:02 99 101 H 98 BP BP BP Pulse Ox 01/13/18 14:00 149/76 94 L 01/13/18 06:39 140/71 96 01/13/18 00:00 01/12/18 23:00 105/54 91 L 01/12/18 17:40 134/69 99 01/12/18 17:19 95 01/12/18 16:12 95 01/12/18 16:02 136/63 137/63 129/59 Intake and Output 01/13/18 01/13/18 01/13/18 06:59 14:59 22:59 Other: # Voids 1 2 # Bowel Movements 0 - Constitutional General appearance: average body habitus, cooperative, no acute distress - EENT Eyes: EOMI, PERRLA, dentition normal ENT: hard of hearing, NA/AT, normal oropharynx - Neck Neck: normal ROM - Respiratory Respiratory: bilateral: CTA - Cardiovascular Rhythm: regular Heart sounds: normal: S1, S2 - Gastrointestinal General gastrointestinal: normal bowel sounds, tenderness - Integumentary Integumentary: pale - Neurologic Neurologic: CNII-XII intact - Musculoskeletal Musculoskeletal: gait normal, generalized weakness, strength equal bilaterally - Psychiatric Psychiatric: A&O x's 3, appropriate affect, intact judgment & insight Results CBC & Chem 7: 01/13/18 08:55 01/13/18 08:55 Labs: Abnormal Lab Results - Last 24 Hours (Table) 01/12/18 01/13/18 01/13/18 Range/Units 20:53 08:55 08:55 RBC 3.60 L (3.80-5.40) m/uL Hgb 7.3 L 7.9 L (11.4-16.0) gm/dL Hct 24.7 L 28.0 L (34.0-46.0) % MCV 68.4 L 70.0 L (80.0-100.0) fL MCH 20.2 L 19.7 L (25.0-35.0) pg MCHC 29.6 L 28.1 L (31.0-37.0) g/dL RDW 24.0 H 23.8 H (11.5-15.5) % Plt Count 500 H 569 H (150-450) k/uL Sodium 146 H (137-145) mmol/L BUN 5 L (7-17) mg/dL Total Protein 6.0 L (6.3-8.2) g/dL Assessment and Plan Plan: Assessment and Recommendations: 1. Microcytic Anemia - Symptomatic - Likely from acute GI Blood Loss - Last EGD and COlonoscopy in October of this year, did not show evidence of bleeding - Plan for EGD and COlonoscopy on 01/14/18 - Full Anemia work-up with Iron Studies, Retic, B12, Folate, Ordered. - Hold Blood Thinners at this time 2. Hx: Peripheral Vascular Disease with Stents - On Aspirin and Pletal 3. Depression - Hx: Suicidal Attempt. Physician Attestation: I have completed the full history and physical of this patient and agree with above dictation by Ilana Mayfield NP. Dictated as a scribe.
[2018-01-13 19:30] LABS: Folate, Serum 13.6 ng/mL; Iron Saturation 2.33 (12.00-45.00)
[2018-01-13] MEDS: PANTOPRAZOLE 40 MG/10 ML VIAL IVP SCH (22:00)
[2018-01-13 22:37] VITALS: RESP 16
[2018-01-14] MEDS: LACTATED RINGERS 1,000 ML IV SCH ×2 (05:47→21:05)
[2018-01-14] MEDS: SYMBICORT 80-4.5 MCG INHALER INHALATION SCH ×2 (06:59→19:03)
[2018-01-14] MEDS: ATORVASTATIN 20 MG TAB PO SCH (08:47)
[2018-01-14] MEDS: amLODIPine 10 MG TAB PO SCH (08:47)
[2018-01-14] MEDS: PANTOPRAZOLE 40 MG/10 ML VIAL IVP SCH ×2 (08:47→21:06)
[2018-01-14] MEDS: METOPROLOL TARTRATE 25 MG TAB PO SCH (08:47)
[2018-01-14 09:36] LABS: Anisocytosis Moderate; Basophils % (A) 0 %; Eosinophils # (A) 0.2 k/uL (0-0.7); Eosinophils % (A) 3 %; HCT 30.5 % (34.0-46.0); HGB 8.8 gm/dL (11.4-16.0); Hypochromasia Marked; Lymphocytes % (A) 15 %; MCH 20.1 pg (25.0-35.0); MCV 69.5 fL (80.0-100.0); Mean Platelet Volume 5.7; Microcytosis Marked; Monocytes # (A) 0.5 k/uL (0-1.0); Monocytes % (A) 7 %; Neutrophils # (A) 4.8 k/uL (1.3-7.7); Neutrophils % (A) 72 %; Platelet Count 591 k/uL (150-450); Poikilocytosis Marked; RBC 4.39 m/uL (3.80-5.40); WBC 6.6 k/uL (3.8-10.6)
[2018-01-14 09:45] LABS: Anion Gap 13 mmol/L; Blood Urea Nitrogen 4 mg/dL (7-17); Calcium 8.9 mg/dL (8.4-10.2); Carbon Dioxide 29 mmol/L (22-30); Chloride 103 mmol/L (98-107); Glucose 75 mg/dL (74-99); Potassium 4.5 mmol/L (3.5-5.1); Sodium 145 mmol/L (137-145)
--- NOTE | 2018-01-14 10:22 | P.PN ---
Subjective Progress Note Date: 01/14/18 2-year-old female who presented to the emergency room with a chief complaint of dark stools. The patient was seen and evaluated by her PCP, Dr. Mccollum on 01/09/2018 for a chief complaint of shortness of breath. She was diagnosed with a upper respiratory infection and prescribed steroids and antibiotics. Blood work was also completed which revealed a hemoglobin of 5.5. The patient was notified the following morning and she came to the [facility] for a transfusion of two units packed RBCs. The patient was not admitted at that time because she denied any other symptoms and had recently undergone EGD/colonoscopy in October 2017. She denied dark stools last week but states she recently started having dark stools over the last 1-2 days. She denies nausea or vomiting. Denies chest pain or pressure. She does report some shortness of breath with exertion. Denies fever or chills. EGD/Colonoscopy 10/03/2017: Antral gastritis, moderate size hiatal hernia, esophagitis. In the descending colon, a few scattered diverticula were visualized. No acute bleeding was noted. Pathology results revealed: Mild chronic gastritis and benign squamous esophageal mucosa The patient has a history of deep vein thrombosis, gastroesophageal reflux disease, hyperlipidemia, hypertension, peripheral vascular disease, eczema, and anxiety. The patient is a former cigarette smoker. She started smoking at age 17 and quit in 1999. She is and lives with her . Her does have dementia with occasional aggressive and threatening behavior. The patient was admitted to [facility] last year due to a suicide attempt that the patient reports is due to the stress of her and his dementia. Laboratory data: WBC 10.7. Hemoglobin 8.2. Platelet count 685. Sodium 144. Potassium 4.0. BUN 9. Creatinine 0.60. Glucose 112. Urinalysis is unremarkable. Stool for occult blood: Positive The patient was admitted to the hospital under the care of Dr. Mccollum. Consultations were placed to Dr. Patel, general surgery, and Dr. Ashley, hematology. 01/14/2018 Patient seen and examined at the bedside on rounds with Dr. Mccollum. Patient is awake and alert. She is nothing by mouth. Patient completed bowel prep yesterday. She is scheduled for EGD and colonoscopy today. Hemoglobin this morning is stable at 8.8. Iron studies reveal TIBC 387, iron saturation 2.33, ferritin 7.6, B12 2689, folate 13.6, reticulocyte count 2.0. Objective - Vital Signs Vital signs: Vital Signs Temp 97.1 F L 01/14/18 05:50 Pulse 86 01/14/18 05:50 Resp 16 01/14/18 05:50 BP 130/67 01/14/18 05:50 Pulse Ox 95 01/14/18 05:50 Intake & Output 01/13/18 01/14/18 01/14/18 18:59 06:59 18:59 Intake Total 290 Balance 290 Intake: Oral 290 Other: Voiding Method Toilet # Voids 2 1 # Bowel Movements 5 1 - Exam GENERAL: This is a 72-year-old female in no apparent distress at the time of examination. Pleasant and cooperative. HEENT: Head is atraumatic, normocephalic. Pupils are equal, round, and reactive to light. Sclerae anicteric. Conjunctivae are clear. Mucus membranes of the mouth are moist. Neck is supple. RESPIRATORY: Clear to ausculation. No wheezes, rales, or rhonchi. No use of accessory muscles. Patient maintaining oxygen saturation greater than 92%. No chest wall tenderness is noted on palpation or with deep breathing. CARDIOVASCULAR: Regular rate and rhythm. S1 and S2 noted. No systolic or diastolic murmur auscultated. No JVD noted. No S3 or S4 noted. GASTROINTESTINAL: No distention noted. Abdomen soft and round. Normal active bowel sounds auscultated x 4 quadrants. No pain or tenderness noted upon palpation. INTEGUMENTARY: No cyanosis. No jaundice. No rashes noted. No cellulitis noted. EXTREMITIES: 2+ peripheral pulses. No evidence of peripheral edema. No calf tenderness noted. NEUROLOGIC: Cranial nerves II-XII intact. PSYCHIATRIC: Awake, alert, and oriented X 3. Appropriate affect. Intact judgement and insight. - Labs CBC & Chem 7: 01/14/18 09:11 01/14/18 09:11 Labs: Abnormal Lab Results - Last 24 Hours (Table) 01/13/18 01/13/18 01/14/18 Range/Units 08:55 15:21 09:11 Hgb 8.8 L (11.4-16.0) gm/dL Hct 30.5 L (34.0-46.0) % MCV 69.5 L (80.0-100.0) fL MCH 20.1 L (25.0-35.0) pg MCHC 29.0 L (31.0-37.0) g/dL RDW 24.0 H (11.5-15.5) % Plt Count 591 H (150-450) k/uL BUN (7-17) mg/dL Iron 9 L 7 L (50-170) ug/dL Iron Saturation 2.33 L (12.00-45.00) Ferritin 7.6 L (10.0-291.0) ng/mL Vitamin B12 2689.0 H (200.0-944.0) pg/mL 01/14/18 Range/Units 09:11 Hgb (11.4-16.0) gm/dL Hct (34.0-46.0) % MCV (80.0-100.0) fL MCH (25.0-35.0) pg MCHC (31.0-37.0) g/dL RDW (11.5-15.5) % Plt Count (150-450) k/uL BUN 4 L (7-17) mg/dL Iron (50-170) ug/dL Iron Saturation (12.00-45.00) Ferritin (10.0-291.0) ng/mL Vitamin B12 (200.0-944.0) pg/mL Assessment and Plan Plan: ASSESSMENT: Complaints of dark stools, shortness of breath, with stool positive for occult blood, suspect secondary to GI bleed Microcytic, hypochromic anemia with elevated RDW, suspect secondary to acute blood loss, S/P transfusion of 2 units packed RBCs 01/10/2018 Recent EGD and colonoscopy, 10/2017, revealing antral gastritis, moderate size hiatal hernia, esophagitis, and scattered diverticula History of deep vein thrombosis Gastroesophageal reflux disease Hyperlipidemia Hypertension Peripheral vascular disease Generalized anxiety disorder History of nicotine dependence, in remission, patient quit smoking in 1999 PLAN: Dr. Patel, general surgery, on consult. Appreciate recommendations and input Patient scheduled for EGD and colonoscopy today. Await results. Home meds as appropriate. Hold aspirin and pletal at this time Hematology on consult. Appreciate recommendations and input Monitor labs GI prophylaxis: Protonix 40 mg IV BID DVT prophylaxis: SCDs to bilateral lower extremities while in bed Monitor vital signs and address as appropriate Discharge planning: Patient to return home when stable Further recommendations pending patient's course Nurse practitioner note has been reviewed by physician. Signing provider agrees with the documented findings, assessment, and plan of care.
[2018-01-14] MEDS ORDERED: PROPOFOL 10 MG/ML 20 ML VIAL IV ONE (11:38)
[2018-01-14] MEDS ORDERED: IV FLUID CONTINUATION 1,000 ML IV ONE (11:39)
[2018-01-14] MEDS ORDERED: MULTIVITAMINS, THERA 1 EACH TAB PO SCH (12:00)
--- NOTE | 2018-01-14 12:03 | P.OP ---
Date of Procedure: 01/14/18 Preoperative Diagnosis: GI bleed Postoperative Diagnosis: Antral gastritis Sliding hiatal hernia Mild esophagitis No evidence of colonic bleed. Procedure(s) Performed: EGD Colonoscopy Anesthesia: MAC Surgeon: Andrew Patel Pathology: other (Antrum, esophagus) Condition: stable Disposition: PACU Description of Procedure: The patient's placed on the endoscopy table lateral position. She received IV sedation. Scope was then placed oropharynx passed in the esophagus and into the stomach. Scope was then placed through the pylorus. The first and second portion of the duodenum appeared normal. Scope was then brought back the antrum and this appeared to be moderately inflamed a biopsies performed. There is no sign of active bleeding. There is no blood seen the stomach or duodenum. The scope was unretroflexed and remainder some appeared normal. There was a sliding hiatal hernia. The GE junction was at 38 cm. The distal esophagus appeared mildly inflamed a biopsies performed. Scope was then withdrawn. Next digital rectal exam was performed. The patient a previous low anterior section. The colorectal anastomosis palpated with the examining finger. The previously stricture of the colorectal anastomosis. This point the colonoscope was placed patient anus passed throughout the entire colon. The ileocecal valve was visualized. The cecum, ascending and transverse colon appeared normal. The descending colon appeared normal. At the colorectal anastomosis the anastomosis visualized and there appeared to be some mild inflammation of the anastomosis. Scope was then brought back the rectum and this appeared normal. Scope was withdrawn for patient.
[2018-01-14] MEDS: SODIUM FERRIC GLUCONAT-SUCROSE 125 MG in SODIUM CHLORIDE 0.9% 100 ML IVPB SCH (12:15)
--- NOTE | 2018-01-14 17:16 | P.PN ---
Subjective Progress Note Date: 01/14/18 Principal diagnosis: Anemia GI blood Loss Patient seen in follow-up, status post endoscopy today. Objective - Vital Signs Vital signs: Vital Signs Temp 98.1 F 01/14/18 14:13 Pulse 86 01/14/18 14:13 Resp 16 01/14/18 14:13 BP 132/67 01/14/18 14:13 Pulse Ox 97 01/14/18 14:13 Intake & Output 01/13/18 01/14/18 01/14/18 18:59 06:59 18:59 Intake Total 290 100 Balance 290 100 Intake: IV 100 Oral 290 Other: Voiding Method Toilet Toilet # Voids 2 1 3 # Bowel Movements 5 1 - Constitutional General appearance: Present: average body habitus, cooperative, no acute distress - EENT Eyes: Present: EOMI, PERRLA, dentition normal ENT: Present: hard of hearing, NA/AT, normal oropharynx - Neck Details: Supple, Trachea Midline Neck: Present: normal ROM - Respiratory Respiratory: bilateral: CTA (No increased effort) - Cardiovascular Heart rate: 102 Rhythm: regular Heart sounds: normal: S1, S2 - Gastrointestinal General gastrointestinal: Present: normal bowel sounds, soft, tenderness - Integumentary Integumentary: Present: pale - Neurologic Neurologic Comment(s): No focal defects Neurologic: Present: CNII-XII intact - Musculoskeletal Musculoskeletal: Present: gait normal, generalized weakness, strength equal bilaterally - Psychiatric Psychiatric: Present: A&O x's 3, appropriate affect, intact judgment & insight - Labs CBC & Chem 7: 01/14/18 09:11 01/14/18 09:11 Labs: Abnormal Lab Results - Last 24 Hours (Table) 01/13/18 01/13/18 01/14/18 Range/Units 08:55 15:21 09:11 Hgb 8.8 L (11.4-16.0) gm/dL Hct 30.5 L (34.0-46.0) % MCV 69.5 L (80.0-100.0) fL MCH 20.1 L (25.0-35.0) pg MCHC 29.0 L (31.0-37.0) g/dL RDW 24.0 H (11.5-15.5) % Plt Count 591 H (150-450) k/uL BUN (7-17) mg/dL Iron 9 L 7 L (50-170) ug/dL Iron Saturation 2.33 L (12.00-45.00) Ferritin 7.6 L (10.0-291.0) ng/mL Vitamin B12 2689.0 H (200.0-944.0) pg/mL 01/14/18 Range/Units 09:11 Hgb (11.4-16.0) gm/dL Hct (34.0-46.0) % MCV (80.0-100.0) fL MCH (25.0-35.0) pg MCHC (31.0-37.0) g/dL RDW (11.5-15.5) % Plt Count (150-450) k/uL BUN 4 L (7-17) mg/dL Iron (50-170) ug/dL Iron Saturation (12.00-45.00) Ferritin (10.0-291.0) ng/mL Vitamin B12 (200.0-944.0) pg/mL Assessment and Plan Plan: Assessment and Recommendations: 1. Microcytic Anemia - Symptomatic - Likely from acute GI Blood Loss - Last EGD and COlonoscopy in October of this year, did not show evidence of bleeding - Status Post EGD and COlonoscopy on 01/14/18 - Full Anemia work-up with Iron Studies, Retic, B12, Folate, Reviewed - Hold Blood Thinners at this time - IV Iron infusions Ordered - Follow-up outpatient after discharge to reassess Iron and continue infusion inf needed 2. Hx: Peripheral Vascular Disease with Stents - On Aspirin and Pletal 3. Depression - Hx: Suicidal Attempt. 4. Thrombocytosis - Reactive
[2018-01-15 06:28] VITALS: BP 136/66; PULSE 76; TEMP 97.7
[2018-01-15] MEDS: SYMBICORT 80-4.5 MCG INHALER INHALATION SCH (07:33)
[2018-01-15 09:04] LABS: Anisocytosis Moderate; Basophils % (A) 0 %; Eosinophils # (A) 0.2 k/uL (0-0.7); Eosinophils % (A) 3 %; HCT 29.4 % (34.0-46.0); HGB 8.4 gm/dL (11.4-16.0); Hypochromasia Marked; Lymphocytes # (A) 0.9 k/uL (1.0-4.8); Lymphocytes % (A) 12 %; MCH 19.6 pg (25.0-35.0); MCHC 28.5 g/dL (31.0-37.0); MCV 68.9 fL (80.0-100.0); Mean Platelet Volume 6.1; Microcytosis Marked; Monocytes # (A) 0.4 k/uL (0-1.0); Monocytes % (A) 6 %; Neutrophils # (A) 5.3 k/uL (1.3-7.7); Neutrophils % (A) 76 %; Platelet Count 517 k/uL (150-450); Poikilocytosis Marked; RBC 4.26 m/uL (3.80-5.40); RDW 23.4 % (11.5-15.5); WBC 6.9 k/uL (3.8-10.6)
[2018-01-15] MEDS: ATORVASTATIN 20 MG TAB PO SCH (09:14)
[2018-01-15] MEDS: amLODIPine 10 MG TAB PO SCH (09:14)
[2018-01-15] MEDS: PANTOPRAZOLE 40 MG/10 ML VIAL IVP SCH (09:15)
[2018-01-15] MEDS: METOPROLOL TARTRATE 25 MG TAB PO SCH (09:15)
[2018-01-15] MEDS: SODIUM FERRIC GLUCONAT-SUCROSE 125 MG in SODIUM CHLORIDE 0.9% 100 ML IVPB SCH (09:15)
[2018-01-15 09:20] LABS: Anion Gap 13 mmol/L; Blood Urea Nitrogen 6 mg/dL (7-17); Calcium 8.8 mg/dL (8.4-10.2); Carbon Dioxide 27 mmol/L (22-30); Chloride 103 mmol/L (98-107); Glucose 177 mg/dL (74-99); Potassium 4.2 mmol/L (3.5-5.1); Sodium 143 mmol/L (137-145)
--- NOTE | 2018-01-15 10:11 | P.DS ---
Providers Date of admission: 01/13/18 09:20 Expected date of discharge: 01/15/18 Attending physician: Arvind Mccollum Consults: 01/12/18 16:48 Consult Physician Stat Consulting Provider: Qamar Ashley Consult Reason/Comments: Anemia Do you want consulting provider notified?: Yes 01/13/18 09:02 Consult Physician Routine Consulting Provider: Andrew Patel Consult Reason/Comments: anemia, GI bleed, pt known to you Do you want consulting provider notified?: Yes Primary care physician: Arvind Mccollum [facility] Course: 72-year-old female who presented to the emergency room with a chief complaint of dark stools. The patient was seen and evaluated by her PCP, Dr. Mccollum on 01/09/2018 for a chief complaint of shortness of breath. She was diagnosed with a upper respiratory infection and prescribed steroids and antibiotics. Blood work was also completed which revealed a hemoglobin of 5.5. The patient was notified the following morning and she came to the [facility] for a transfusion of two units packed RBCs. The patient was not admitted at that time because she denied any other symptoms and had recently undergone EGD/colonoscopy in October 2017. She denied dark stools last week but states she recently started having dark stools over the last 1-2 days. She denies nausea or vomiting. Denies chest pain or pressure. She does report some shortness of breath with exertion. Denies fever or chills. EGD/Colonoscopy 10/03/2017: Antral gastritis, moderate size hiatal hernia, esophagitis. In the descending colon, a few scattered diverticula were visualized. No acute bleeding was noted. Pathology results revealed: Mild chronic gastritis and benign squamous esophageal mucosa The patient has a history of deep vein thrombosis, gastroesophageal reflux disease, hyperlipidemia, hypertension, peripheral vascular disease, eczema, and anxiety. The patient is a former cigarette smoker. She started smoking at age 17 and quit in 1999. She is and lives with her . Her does have dementia with occasional aggressive and threatening behavior. The patient was admitted to [facility] last year due to a suicide attempt that the patient reports is due to the stress of her and his dementia. Laboratory data: WBC 10.7. Hemoglobin 8.2. Platelet count 685. Sodium 144. Potassium 4.0. BUN 9. Creatinine 0.60. Glucose 112. Urinalysis is unremarkable. Stool for occult blood: Positive The patient was admitted to the hospital under the care of Dr. Mccollum. Consultations were placed to Dr. Patel, general surgery, and Dr. Ashley, hematology. Iron studies reveal TIBC 387, iron saturation 2.33, ferritin 7.6, B12 2689, folate 13.6, reticulocyte count 2.0. The patient was evaluated by hematology. She has received an IV iron transfusion. Her hemoglobin has remained stable in the 8 range. Hematology recommends to continue to hold aspirin and antiplatelet medication at this time. The patient underwent EGD and colonoscopy on 01/14/[address] Patel, which revealed antral gastritis, sliding hiatal hernia, mild esophagitis, but no evidence of an acute bleed. The patient was deemed stable for discharge per Dr. Mccollum. She is to follow up on an outpatient basis with Dr. Mccollum and consulting providers. She is to hold her aspirin and Pletal until she is evaluated by Dr. Mccollum the outpatient setting. She is to have her hemoglobin repeated at her follow-up visit with Dr. Mccollum. DISCHARGE DIAGNOSIS: Complaints of dark stools, shortness of breath, with stool positive for occult blood, suspect secondary to GI cause, s/p EGD and colonoscopy which revealed antral gastritis, sliding hiatal hernia, mild esophagitis, but no evidence of an acute bleed. Microcytic, hypochromic anemia with elevated RDW, suspect secondary to acute blood loss, S/P transfusion of 2 units packed RBCs 01/10/2018 Recent EGD and colonoscopy, 10/2017, revealing antral gastritis, moderate size hiatal hernia, esophagitis, and scattered diverticula History of deep vein thrombosis Gastroesophageal reflux disease Hyperlipidemia Hypertension Peripheral vascular disease Generalized anxiety disorder History of nicotine dependence, in remission, patient quit smoking in 1999 Nurse practitioner note has been reviewed by physician. Signing provider agrees with the documented findings, assessment, and plan of care. Patient Condition at Discharge: Stable Plan - Discharge Summary Discharge Rx Participant: Yes New Discharge Prescriptions: Continue Simvastatin [Zocor] 40 mg PO DAILY Multivitamins, Thera [Multivitamin (formulary)] 1 tab PO DAILY Metoprolol Tartrate 25 mg PO DAILY Cyanocobalamin [Vitamin B-12] 500 mcg PO DAILY amLODIPine [Norvasc] 10 mg PO DAILY Fluticasone/Vilanterol [Breo Ellipta 100-25 Mcg Inhaler] 1 puff INHALATION RT -DAILY Discontinued Aspirin 81 mg PO DAILY Cilostazol [Pletal] 100 mg PO BID methylPREDNISolone Dose Pack [Medrol Dose Pack] See Taper PO DIRECTED Azithromycin [Zithromax Z-pack] See Taper PO DAILY Discharge Medication List Simvastatin [Zocor] 40 mg PO DAILY 09/30/14 [History] Multivitamins, Thera [Multivitamin (formulary)] 1 tab PO DAILY 07/12/15 [History ] Cyanocobalamin [Vitamin B-12] 500 mcg PO DAILY 10/01/17 [History] Metoprolol Tartrate 25 mg PO DAILY 10/01/17 [History] amLODIPine [Norvasc] 10 mg PO DAILY 10/01/17 [History] Fluticasone/Vilanterol [Breo Ellipta 100-25 Mcg Inhaler] 1 puff INHALATION RT- DAILY 01/12/18 [History] Follow up Appointment(s)/Referral(s): Arvind Mccollum DO [Primary Care Provider] - 1-2 days Patient Instructions/Handouts: Gastrointestinal Bleeding (ED) Activity/Diet/Wound Care/Special Instructions: Hold Aspirin and Pletal until you are evaluated at follow up appointment with Dr. Mccollum Repeat hemoglobin at follow up appointment with Dr. Mccollum Discharge Disposition: HOME SELF-CARE
== END 2018-01-15 11:54 | disposition home or self-care (01) | DRG 378 ==
LOC: EC 14:04 → 4MS4W 16:22 → OBSVTOIN 01-13 09:20
PROVIDERS: ADMIT Family Medicine; ATTEND Family Medicine
PROC: 0DJD8ZZ Inspection of Lower Intestinal Tract, Via Natural or Artificial Opening Endoscopic (ICD-10-PCS; 2018-01-14)
PROC: 0DB38ZX Excision of Lower Esophagus, Via Natural or Artificial Opening Endoscopic, Diagnostic (ICD-10-PCS; principal; 2018-01-14 11:35)
PROC: 0DB78ZX Excision of Stomach, Pylorus, Via Natural or Artificial Opening Endoscopic, Diagnostic (ICD-10-PCS; 2018-01-14 11:35)
DX: K92.2 Gastrointestinal hemorrhage, unspecified (principal); D62 Acute posthemorrhagic anemia; F03.90 Unspecified dementia, unspecified severity, without behavioral disturbance, psychotic disturbance, mood disturbance, and anxiety; E78.5 Hyperlipidemia, unspecified; K57.30 Diverticulosis of large intestine without perforation or abscess without bleeding; K21.0 Gastro-esophageal reflux disease with esophagitis; I10 Essential (primary) hypertension; L30.9 Dermatitis, unspecified; K59.00 Constipation, unspecified; K29.50 Unspecified chronic gastritis without bleeding; F41.1 Generalized anxiety disorder; K44.9 Diaphragmatic hernia without obstruction or gangrene; I83.90 Asymptomatic varicose veins of unspecified lower extremity; F32.9 Major depressive disorder, single episode, unspecified; F17.201 Nicotine dependence, unspecified, in remission; M19.91 Primary osteoarthritis, unspecified site; J06.9 Acute upper respiratory infection, unspecified; I73.9 Peripheral vascular disease, unspecified; Z79.82 Long term (current) use of aspirin; Z79.51 Long term (current) use of inhaled steroids; Z79.899 Other long term (current) drug therapy; Z86.718 Personal history of other venous thrombosis and embolism; Z95.828 Presence of other vascular implants and grafts; Z90.49 Acquired absence of other specified parts of digestive tract; Z87.891 Personal history of nicotine dependence; Z91.5 Personal history of self-harm; Z98.42 Cataract extraction status, left eye; Z98.41 Cataract extraction status, right eye; Z88.1 Allergy status to other antibiotic agents; Z88.8 Allergy status to other drugs, medicaments and biological substances; Z80.0 Family history of malignant neoplasm of digestive organs; Z82.49 Family history of ischemic heart disease and other diseases of the circulatory system; Z82.5 Family history of asthma and other chronic lower respiratory diseases; Z82.0 Family history of epilepsy and other diseases of the nervous system
CPT/HCPCS: 36415; 43239; 45378; 80048; 80053; 81003; 82272; 82607; 82728; 82746; 83540; 83550; 83921; 85025; 85027; 85045; 88305; 94640; 96361; 96374; 99285

== ENCOUNTER → 2018-08-07 | Outpatient (CLI) | payer MEDICARE ==
--- NOTE | 2018-08-14 14:46 | MM ---
Reason for exam: screening (asymptomatic). Last mammogram was performed 1 year and 2 months ago. History: Patient is postmenopausal. Excisional biopsy of the left breast, 2005. MG Screening Mammo w CAD Bilateral CC and MLO view(s) were taken. Prior study comparison: June 10, 2017, bilateral MG 3d diag mammo w/cad ALIRIO. July 02, 2016, left breast MG 3d diag mammo w/cad LT. The breast tissue is heterogeneously dense. This may lower the sensitivity of mammography. There is a suspicious equal irregular indistinctive density in the right breast anterior position. Finding is changed when compared to prior studies. ASSESSMENT: Incomplete: need additional imaging evaluation, BI-RAD 0 RECOMMENDATION: Special view mammogram of the right breast.
== END | disposition home or self-care (01) ==
LOC: RADMAMWWP 11:41
PROVIDERS: ATTEND Family Medicine
DX: Z12.31 Encounter for screening mammogram for malignant neoplasm of breast (principal)
CPT/HCPCS: 77067

== ENCOUNTER → 2018-08-21 | Outpatient (CLI) | payer MEDICARE ==
--- NOTE | 2018-08-25 18:05 | MM ---
Reason for exam: additional evaluation requested from abnormal screening. Last mammogram was performed less than 1 month ago. History: Patient is postmenopausal. Excisional biopsy of the left breast, 2005. Physical Findings: Nurse did not find any significant physical abnormalities on exam. MG Work Up Mamm w CAD RT LM and spot compression MLO view(s) were taken of the right breast. Prior study comparison: August 07, 2018, bilateral MG screening mammo w CAD. June 10, 2017, bilateral MG 3d diag mammo w/cad ALIRIO. The breast tissue is heterogeneously dense. This may lower the sensitivity of mammography. The central anterior asymmetric density becomes less defined on tight spot compression. These results were verbally communicated with the patient and result sheet given to the patient on 08/21/18. ASSESSMENT: Probably benign, BI-RAD 3 RECOMMENDATION: Follow-up diagnostic mammogram of the right breast in 6 months.
== END | disposition home or self-care (01) ==
LOC: RADMAMWWP 10:40
PROVIDERS: ATTEND Family Medicine
DX: R92.8 Other abnormal and inconclusive findings on diagnostic imaging of breast (principal)
CPT/HCPCS: 77065

== ENCOUNTER → 2019-02-23 | Outpatient (CLI) | payer MEDICARE ==
--- NOTE | 2019-02-24 08:58 | MM ---
Reason for exam: follow-up at short interval from prior study. Last mammogram was performed 6 months ago. History: Patient is postmenopausal. Benign stereotactic core biopsy of the left breast, 2005. Physical Findings: Nurse did not find any significant physical abnormalities on exam. MG Diagnostic Mammo RT w CAD CC, MLO, and LM view(s) were taken of the right breast. Prior study comparison: August 21, 2018, right breast MG work up mamm w CAD RT. August 07, 2018, bilateral MG screening mammo w CAD. The breast tissue is heterogeneously dense. This may lower the sensitivity of mammography. Stable benign calcifications. There is no discrete abnormality. No significant new findings when compared with previous films. These results were verbally communicated with the patient and result sheet given to the patient on 02/23/19. ASSESSMENT: Benign, BI-RAD 2 RECOMMENDATION: Follow-up diagnostic mammogram of both breasts in 6 months.
== END | disposition home or self-care (01) ==
LOC: RADMAMWWP 10:08
PROVIDERS: ATTEND Family Medicine
DX: R92.8 Other abnormal and inconclusive findings on diagnostic imaging of breast (principal)
CPT/HCPCS: 77065

== ENCOUNTER → 2019-06-12 | Outpatient (CLI) | payer MEDICARE ==
--- NOTE | 2019-06-12 17:20 | XR ---
EXAMINATION TYPE: XR foot limited LT DATE OF EXAM: 06/12/2019 COMPARISON: NONE HISTORY: 74-year-old female with left foot pain TECHNIQUE: 2 views FINDINGS: End-stage degenerative change at the first MTP joint with complete loss of cartilage and joint space, [id number] abutment, subchondral sclerosis and cystic change and bulky marginal spurring. Small ty pe I accessory navicular. Osteopenia. Moy's toe. Tiny plantar calcaneal spur. Ossific density at t he Achilles insertion suggest chronically fragmented spur or chronic insertional Achilles tendinopath y. No acute fracture seen. IMPRESSION: 1. End-stage first MTP joint OA. 2. Findings suggest either an old fragmented posterior calcaneal spur versus old injury to the distal Achilles tendon with associated ossification. 3. Tiny plantar calcaneal spur.
== END | disposition home or self-care (01) ==
LOC: RADXRMAIN 15:44
PROVIDERS: ATTEND Family Medicine
DX: M19.072 Primary osteoarthritis, left ankle and foot (principal)

== ENCOUNTER → 2020-08-08 | Outpatient (CLI) | payer MEDICARE ==
[2020-08-08 08:49] LABS: HCT 41.1 % (34.0-46.0); HGB 13.9 gm/dL (11.4-16.0); MCH 30.7 pg (25.0-35.0); MCHC 33.7 g/dL (31.0-37.0); MCV 90.9 fL (80.0-100.0); Mean Platelet Volume 6.2; Platelet Count 281 k/uL (150-450); RBC 4.52 m/uL (3.80-5.40); WBC 5.7 k/uL (3.8-10.6)
[2020-08-08 09:02] LABS: African American GFR (CKD) >90 (>60 ml/min/1.73 sqM); Anion Gap 4 mmol/L; Blood Urea Nitrogen 16 mg/dL (7-17); Carbon Dioxide 30 mmol/L (22-30); Chloride 105 mmol/L (98-107); Non-African American GFR(CKD) 80 (>60 ml/min/1.73 sqM); Potassium 4.6 mmol/L (3.5-5.1); Sodium 139 mmol/L (137-145)
== END | disposition home or self-care (01) ==
LOC: LABPAT 07:57
PROVIDERS: ATTEND Internal Medicine Interventional Cardiology
DX: Z01.818 Encounter for other preprocedural examination (principal); I25.10 Atherosclerotic heart disease of native coronary artery without angina pectoris
CPT/HCPCS: 80051; 82565; 84520; 85027

== ENCOUNTER 2020-08-16 08:01 | Day surgery (SDC) | payer MEDICARE ==
[2020-08-09 16:24] VITALS: BMI 25.8
[~2020-08-16 08:01] MED LIST changes: +ALPRAZolam 0.25 MG TAB PO PRN; +ALPRAZolam 0.5 MG TAB PO PRN; +ASPIRIN 325 MG TAB PO STA; +ATORVASTATIN 80 MG TAB PO STA; -LACTATED RINGERS 1,000 ML IV SCH; +NITROGLYCERIN SL TABS 0.4 MG TAB SUBLINGUAL PRN; +SODIUM CHLORIDE 0.9% 1,000 ML in EMPTY BAG 1 BAG IV ONE
[2020-08-16] MEDS ORDERED: SODIUM CHLORIDE 0.9% 1,000 ML IV ONE (08:55)
[2020-08-16 09:02] VITALS: RESP 18; TEMP 98.4
[2020-08-16] MEDS ORDERED: MIDAZOLAM 2 MG/2 ML VIAL IV ONE ×2 (11:13)
[2020-08-16] MEDS ORDERED: LIDOCAINE 1% INJ 10MG/ML (20 ML MDV) SQ ONE (11:17)
[2020-08-16] MEDS: VERAPAMIL SYRINGE (5 MG/10 ML) INTRAARTER ONE ×2 (11:18→11:29)
[2020-08-16] MEDS ORDERED: HEPARIN SODIUM 1,000 UN/ML (10ML VL) IV ONE (11:19)
[2020-08-16] MEDS ORDERED: IOPAMIDOL-370 125ML BTL INJ ONE (11:32)
[2020-08-16] MEDS ORDERED: RX INFO: IV CONTRAST WAS GIVEN 1 EACH MISC MISCELLANE PRN (11:36)
[2020-08-16] MEDS ORDERED: SODIUM CHLORIDE 0.9% 1,000 ML IV SCH (11:45)
--- NOTE | 2020-08-16 12:48 | CC ---
CARDIAC CATHETERIZATION REPORT DATE OF SERVICE: August 16, 2020. PERFORMING PHYSICIAN: Felipe Kumar MD. PROCEDURE PERFORMED: 1. Selective right and left coronary angiogram. 2. Left heart catheterization. INDICATION: This is a very pleasant 75-year-old female patient with peripheral arterial disease and prior revascularization as well as hypertension and dyslipidemia who was experiencing symptoms of chest discomfort with exertion concerning for angina. Because of that, a heart catheterization was advised. APPROACH: Right radial artery. COMPLICATION: None. LEVEL OF SEDATION: Moderate with sedation length of 13 minutes. PROCEDURE DESCRIPTION: After obtaining informed consent, the patient was brought to the cardiac laborer beam house. The right radial artery was cannulated using micropuncture technique, the micropuncture wire passed easily then I placed a 6-Japanese sheath at the right radial artery. After that I gave the patient 2 mg of verapamil IA and 6000 units of heparin IV. Selective right and left coronary angiogram performed using JR4 and JL3.5 catheters. Everything was 5-Japanese. After that I did left heart catheterization using 5-Japanese pigtail catheter. The procedure was completed without any complication. SELECTIVE CORONARY ANGIOGRAM: 1. The right coronary artery is a moderate caliber vessel and it is a nondominant vessel. The RCA is angiographically normal. 2. The left main is angiographically normal. The left main bifurcates into LCX as well as LAD. 3. The LCX is a large caliber vessel and it is a dominant vessel. The proximal LCX is angiographically normal. The mid LCX is normal and gives rise into an OM which appeared to be angiographically normal. The left circumflex distally is normal and bifurcates into PDA and PLV branches. The PDA branch is angiographically normal. The PLV branch has a lesion appeared to be in the range of 60% to 70%. The artery itself is about 2 mm. 4. The LAD is a large caliber vessel. The LAD is angiographically normal. It gives rise into a large diagonal branch which seems to be angiographically normal and second diagonal branch which is also large and appeared to be angiographically normal. HEMODYNAMICS: The LVEDP was about 10 to 12 mmHg without significant gradient across the aortic valve. CONCLUSION: 1. Calcified right and left coronary systems. 2. Dominant left circumflex coronary system. 3. Intermediate disease to severe disease involving the PLV branch of the left circumflex. POSTPROCEDURE MANAGEMENT: 1. Maximize medical treatment at this point. 2. Consider PCI of the PLV branch if the patient continues to be symptomatic in spite of maximized medical treatment. MMHARRIETL / IJN: [id number] /
[2020-08-16 17:25] VITALS: BP 124/76; PULSE 64
== END 2020-08-16 16:35 | disposition home or self-care (01) ==
LOC: CATHCVL 08:01
PROVIDERS: ATTEND Internal Medicine Interventional Cardiology
DX: I25.110 Atherosclerotic heart disease of native coronary artery with unstable angina pectoris (principal); I10 Essential (primary) hypertension; I48.0 Paroxysmal atrial fibrillation; I70.203 Unspecified atherosclerosis of native arteries of extremities, bilateral legs; E78.5 Hyperlipidemia, unspecified; Z72.0 Tobacco use; Z79.899 Other long term (current) drug therapy; Z88.1 Allergy status to other antibiotic agents
CPT/HCPCS: 93458; C1769; C1894; J2250; J2001; J1644; Q9967

== ENCOUNTER → 2020-08-25 | Outpatient (CLI) | payer MEDICARE ==
[2020-08-25 16:21] LABS: Chol/HDL Ratio 3.03; LDL Cholesterol,Calculated 95.4 mg/dL (0.0-131.0); VLDL Calculation 24.6 mg/dL (5.00-40.00)
== END | disposition home or self-care (01) ==
LOC: LABWHC1 07:23
PROVIDERS: ATTEND Nurse Practitioner Adult Health
DX: E78.5 Hyperlipidemia, unspecified (principal); R53.83 Other fatigue
CPT/HCPCS: 36415; 80061; 82306; 84443; 84481

== ENCOUNTER → 2020-09-06 | Outpatient (CLI) | payer MEDICARE | END | disposition home or self-care (01) | LOC: CPPFTMAIN 07:21 | PROVIDERS: ATTEND Internal Medicine Interventional Cardiology | DX: J98.8 Other specified respiratory disorders (principal) | CPT/HCPCS: 94060; 94726; 94729 ==

== ENCOUNTER 2022-08-26 12:34 | Emergency (ER) | payer MEDICARE ==
[2022-08-26] MEDS ORDERED: SODIUM CHLORIDE 0.9% 1,000 ML IV STA (12:43)
[2022-08-26] MEDS ORDERED: PANTOPRAZOLE 40 MG/10 ML VIAL IVP STA (12:52)
--- NOTE | 2022-08-26 13:04 | ED ---
GI Bleed HPI - General Chief complaint: GI Bleed Stated complaint: black stool Time Seen by Provider: 08/26/22 12:43 Source: patient Mode of arrival: ambulatory Limitations: no limitations - History of Present Illness Initial comments: Patient is a 77-year-old female who presents to the emergency department for evaluation of GI bleed. Patient reports increase bowel movements that are sometimes runny for the past 3 weeks. Over the past week patient has noticed dark stools. Patient states today she is starting to feel weak otherwise she denies symptoms. Denies fevers, chills, abdominal pain, nausea, vomiting, lightheadedness, dizziness, chest pain, shortness of breath. Upon questioning patient does admit to history of GI bleed however she does not know details. She currently takes aspirin otherwise no blood thinner use. She does take OTC d aily iron which is possibly a new medication for her. Denies alcohol use. - Related Data Home Medications Medication Instructions Recorded Confirmed Multivitamins, Thera [Multivitamin 1 tab PO DAILY 07/12/15 08/16/20 (formulary)] Cyanocobalamin [Vitamin B-12] 500 mcg PO BID 10/01/17 08/16/20 Metoprolol Tartrate 25 mg PO HS 10/01/17 08/16/20 amLODIPine [Norvasc] 10 mg PO DAILY 10/01/17 08/16/20 Ascorbic Acid [Vitamin C] 500 mg PO DAILY 08/10/20 08/16/20 Aspirin 81 mg PO DAILY 08/10/20 08/16/20 Atorvastatin [Lipitor] 20 mg PO HS 08/10/20 08/16/20 Cimetidine [Tagamet] 400 mg PO BID PRN 08/10/20 08/16/20 Ferrous Sulfate [Iron (65 MG 325 mg PO DAILY 08/10/20 08/16/20 Elemental)] L.acidoph,Paracasei, B.lactis 1 each PO BID 08/10/20 08/16/20 [Probiotic] Neuriva 1 tab PO BID 08/10/20 08/16/20 Vits A,C,E/Lutein/Minerals 1 each PO BID 08/10/20 08/16/20 [Ocuvite with Lutein Tablet] hydrOXYzine HCL 25 mg PO HS 08/10/20 08/16/20 Previous Rx's Medication Instructions Recorded Diphenox-Atrop 2.5-0.025 mg 1 tab PO 5XD PRN 3 Days #15 tablet 08/26/22 [Lomotil] Allergies Allergy/AdvReac Type Severity Reaction Status Date / Time ciprofloxacin [From Cipro] Allergy Itching, Verified 08/26/22 12:41 rash RX FOR PSORIATIC ARTHRITIS AdvReac Severe COLD, Uncoded 08/26/22 12:41 SHIVERING, SHAKING Review of Systems ROS Statement: Those systems with pertinent positive or pertinent negative responses have been documented in the HPI. ROS Other: All systems not noted in ROS Statement are negative. 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 HEART MURMUR. ANEMIA History of Any Multi-Drug Resistant Organisms: None Reported Past Surgical History: Appendectomy, Bowel Resection, Cholecystectomy, Orthopedic Surgery, Tonsillectomy Additional Past Surgical History / Comment(s): stent radha legs, bypass surgery left legs-POST SURGERY HAD CLOT IN LEFT LEG AND DRAIN HAD TO BE INSERTED, left knee arthroscopy, radha carpal tunnel, radha cataracts/r shoulder Past Anesthesia/Blood Transfusion Reactions: No Reported Reaction Past Psychological History: Anxiety Smoking Status: Never smoker Past Alcohol Use History: None Reported Past Drug Use History: None Reported - Past Family History Father Family Medical History: Cancer Additional Family Medical History / Comment(s): COLON CANCER Brother(s) Family Medical History: Coronary Artery Disease (CAD) Additional Family Medical History / Comment(s): EMPHYSEMA Mother Family Medical History: Dementia Additional Family Medical History / Comment(s): ALZHEIMERS General Exam Limitations: no limitations General appearance: alert, in no apparent distress Head exam: Present: atraumatic, normocephalic, normal inspection Eye exam: Present: normal appearance, PERRL, EOMI. Absent: scleral icterus, conjunctival injection, periorbital swelling Respiratory exam: Present: normal lung sounds bilaterally. Absent: respiratory distress, wheezes, rales, rhonchi, stridor Cardiovascular Exam: Present: regular rate, normal rhythm, normal heart sounds. Absent: systolic murmur, diastolic murmur, rubs, gallop, clicks GI/Abdominal exam: Present: soft, tenderness (lower abdomen, both quadrants), normal bowel sounds. Absent: distended, guarding, rebound, rigid Rectal exam: Present: black stool. Absent: hemorrhoids, tenderness Extremities exam: Present: normal inspection Neurological exam: Present: alert, oriented X3, CN II-XII intact Psychiatric exam: Present: normal affect, normal mood Skin exam: Present: warm, dry, intact, normal color. Absent: rash Course Vital Signs 08/26/22 08/26/22 08/26/22 12:36 16:00 17:00 Temperature 97.6 F 97.7 F Pulse Rate 89 74 79 Respiratory 18 20 20 Rate Blood Pressure 144/77 122/58 113/62 O2 Sat by Pulse 98 99 98 Oximetry Medical Decision Making - Medical Decision Making Was pt. sent in by a medical professional or institution (, PA, ORCHARDIST, urgent care, hospital, or snf...) When possible be specific @ -[No] Did you speak to anyone other than the patient for history (EMS, parent, family, police, friend...)? What history was obtained from this source @ -[No] Did you review nursing and triage notes (agree or disagree)? Why? @ -[I reviewed and agree with nursing and triage notes] Were old charts reviewed (outside hosp., previous admission, EMS record, old EKG, old radiological studies, urgent care reports/EKG's, snf records)? Report findings @ -Yes, she had GI bleed in 2018. Received 2 units of blood for low hemoglobin. EGD and colonoscopy was performed by Dr. Torres which revealed antral gastritis, sliding hiatal hernia, and mild esophagitis, but no evidence of acute bleed. Differential Diagnosis (chest pain, altered mental status, abdominal pain women, abdominal pain men, vaginal bleeding, weakness, fever, dyspnea, syncope, headac he, dizziness, GI bleed, back pain, seizure, CVA, palpatations, mental health)? @ -Differential GI Bleed: Esophageal varices, aortoenteric fistula, Dorcas-Jarquin, gastritis, peptic ulcer disease, diverticulosis, inflammatory bowel disease, hemorrhoids, fissure, colitis, malignancy, Meckels diverticulum, this is not meant to be an all- inclusive list. EKG interpreted by me (3pts min.). @ -[As above] X-rays interpreted by me (1pt min.). @ -[None done] CT interpreted by me (1pt min.). @ -[None done] U/S interpreted by me (1pt. min.). @ -[None done] What testing was considered but not performed or refused? (CT, X-rays, U/S, labs)? Why? @ -[None] What meds were considered but not given or refused? Why? @ -[None] Did you discuss the management of the patient with other professionals (professionals i.e. , PA, ORCHARDIST, lab, RT, psych nurse, social media specialist, support representative, teacher, security officers and guards, case supervisor)? Give summary @ -[No] Was smoking cessation discussed for >3mins.? @ -[No] Was critical care preformed (if so, how long)? @ -[No] Were there social determinants of health that impacted care today? How? (Homelessness, low income, unemployed, alcoholism, drug addiction, transportation, low edu. Level, literacy, decrease access to med. care, senior care, rehab)? @ -[No] Was there de-escalation of care discussed even if they declined (Discuss DNR or withdrawal of care, Hospice)? DNR status @ -[No] What co-morbidities impacted this encounter? (DM, HTN, Smoking, COPD, CAD, Cancer, CVA, ARF, Chemo, Hep., AIDS, mental health diagnosis, sleep apnea, morbid obesity)? @ -[None] Was patient admitted / discharged? Hospital course, mention meds given and route, prescriptions, significant lab abnormalities, going to OR and other pertinent info. @ -Discharged. Patient presents with concern for black stools, Hemoccult negative. Hemodynamically stable.Hemoglobin stable at 14.1. CT abdomen and pelvis with contrast negative for acute process. No evidence for acute bleed today. Patient sent home with Lomotil. Instructed to follow-up with primary care provider for further evaluation and management. Undiagnosed new problem with uncertain prognosis? @ -[No] Drug Therapy requiring intensive monitoring for toxicity (Heparin, Nitro, Insulin, Cardizem)? @ -[No] Were any procedures done? @ -[No] Diagnosis/symptom? @ -Black stools Acute, or Chronic, or Acute on Chronic? @ -Acute Uncomplicated (without systemic symptoms) or Complicated (systemic symptoms)? @ -Uncomplicated Side effects of treatment? @ -[No] Exacerbation, Progression, or Severe Exacerbation? @ -[No] Poses a threat to life or bodily function? How? (Chest pain, USA, HI, pneumonia, PE, COPD, DKA, ARF, appy, cholecystitis, CVA, Diverticulitis, Homicidal, Suicidal, threat to staff... and all critical care pts) @ -[No] Dr. Porter is my attending - Lab Data Result diagrams: 08/26/22 13:24 08/26/22 13:24 Lab Results 08/26/22 08/26/22 08/26/22 Range/Units 13:24 13:24 13:24 WBC 8.7 (3.8-10.6) k/uL RBC 4.65 (3.80-5.40) m/uL Hgb 14.1 (11.4-16.0) gm/dL Hct 40.8 (34.0-46.0) % MCV 87.7 (80.0-100.0) fL MCH 30.3 (25.0-35.0) pg MCHC 34.6 (31.0-37.0) g/dL RDW 13.3 (11.5-15.5) % Plt Count 268 (150-450) k/uL MPV 6.5 Neutrophils % 74 % Lymphocytes % 13 % Monocytes % 7 % Eosinophils % 4 % Basophils % 0 % Neutrophils # 6.5 (1.3-7.7) k/uL Lymphocytes # 1.1 (1.0-4.8) k/uL Monocytes # 0.6 (0-1.0) k/uL Eosinophils # 0.4 (0-0.7) k/uL Basophils # 0.0 (0-0.2) k/uL PT 10.0 (9.0-12.0) sec INR 0.9 (<1.2) APTT 23.1 (22.0-30.0) sec Sodium 141 (137-145) mmol/L Potassium 4.1 (3.5-5.1) mmol/L Chloride 108 H (98-107) mmol/L Carbon Dioxide 29 (22-30) mmol/L Anion Gap 4 mmol/L BUN 14 (7-17) mg/dL Creatinine 0.67 (0.52-1.04) mg/dL Est GFR (CKD-EPI)AfAm >90 (>60 ml/min/1.73 sqM) Est GFR (CKD-EPI)NonAf 85 (>60 ml/min/1.73 sqM) Glucose 71 L (74-99) mg/dL Calcium 9.1 (8.4-10.2) mg/dL Magnesium 2.0 (1.6-2.3) mg/dL Total Bilirubin 0.5 (0.2-1.3) mg/dL AST 33 (14-36) U/L ALT 29 (4-34) U/L Alkaline Phosphatase 116 (38-126) U/L Total Protein 7.0 (6.3-8.2) g/dL Albumin 4.2 (3.5-5.0) g/dL Lipase 299 (23-300) U/L Stool Occult Blood (Negative) Blood Type Blood Type Recheck Bld Type Recheck Status Antibody Screen Antibody Identification Direct Antiglob Test Spec Expiration Date 08/26/22 08/26/22 Range/Units 13:24 13:24 WBC (3.8-10.6) k/uL RBC (3.80-5.40) m/uL Hgb (11.4-16.0) gm/dL Hct (34.0-46.0) % MCV (80.0-100.0) fL MCH (25.0-35.0) pg MCHC (31.0-37.0) g/dL RDW (11.5-15.5) % Plt Count (150-450) k/uL MPV Neutrophils % % Lymphocytes % % Monocytes % % Eosinophils % % Basophils % % Neutrophils # (1.3-7.7) k/uL Lymphocytes # (1.0-4.8) k/uL Monocytes # (0-1.0) k/uL Eosinophils # (0-0.7) k/uL Basophils # (0-0.2) k/uL PT (9.0-12.0) sec INR (<1.2) APTT (22.0-30.0) sec Sodium (137-145) mmol/L Potassium (3.5-5.1) mmol/L Chloride (98-107) mmol/L Carbon Dioxide (22-30) mmol/L Anion Gap mmol/L BUN (7-17) mg/dL Creatinine (0.52-1.04) mg/dL Est GFR (CKD-EPI)AfAm (>60 ml/min/1.73 sqM) Est GFR (CKD-EPI)NonAf (>60 ml/min/1.73 sqM) Glucose (74-99) mg/dL Calcium (8.4-10.2) mg/dL Magnesium (1.6-2.3) mg/dL Total Bilirubin (0.2-1.3) mg/dL AST (14-36) U/L ALT (4-34) U/L Alkaline Phosphatase (38-126) U/L Total Protein (6.3-8.2) g/dL Albumin (3.5-5.0) g/dL Lipase (23-300) U/L Stool Occult Blood Negative (Negative) Blood Type O Positive Blood Type Recheck O Pos Bld Type Recheck Status No Antibody Screen POSITIVE Antibody Identification See Comments Direct Antiglob Test Not Reportable Spec Expiration Date 08/29/20222323 Disposition Clinical Impression: Black stools, Acute diarrhea Disposition: HOME SELF-CARE Condition: Good Instructions (If sedation given, give patient instructions): Acute Diarrhea (ED) Additional Instructions: Take medication as directed. Follow-up with Dr. Mccollum in one to 2 days. Return to the emergency department if you experience new symptoms concerning, or worsening symptoms. Prescriptions: Diphenox-Atrop 2.5-0.025 mg [Lomotil] 1 tab PO 5XD PRN 3 Days #15 tablet PRN Reason: Diarrhea Is patient prescribed a controlled substance at d/c from ED?: No Referrals: Arvind Mccollum DO [Primary Care Provider] - 1-2 days
[2022-08-26 13:52] LABS: Basophils % (A) 0 %; Eosinophils # (A) 0.4 k/uL (0-0.7); Eosinophils % (A) 4 %; HCT 40.8 % (34.0-46.0); HGB 14.1 gm/dL (11.4-16.0); Lymphocytes # (A) 1.1 k/uL (1.0-4.8); Lymphocytes % (A) 13 %; MCH 30.3 pg (25.0-35.0); MCHC 34.6 g/dL (31.0-37.0); MCV 87.7 fL (80.0-100.0); Mean Platelet Volume 6.5; Monocytes # (A) 0.6 k/uL (0-1.0); Monocytes % (A) 7 %; Neutrophils # (A) 6.5 k/uL (1.3-7.7); Neutrophils % (A) 74 %; Platelet Count 268 k/uL (150-450); RBC 4.65 m/uL (3.80-5.40); RDW 13.3 % (11.5-15.5); WBC 8.7 k/uL (3.8-10.6)
[2022-08-26 14:01] LABS: INR 0.9 (<1.2); Partial Thromboplastin Time 23.1 sec (22.0-30.0)
[2022-08-26 14:09] LABS: ALT 29 U/L (4-34); AST 33 U/L (14-36); African American GFR (CKD) >90 (>60 ml/min/1.73 sqM); Albumin 4.2 g/dL (3.5-5.0); Alkaline Phosphatase 116 U/L (38-126); Anion Gap 4 mmol/L; Blood Urea Nitrogen 14 mg/dL (7-17); Calcium 9.1 mg/dL (8.4-10.2); Carbon Dioxide 29 mmol/L (22-30); Chloride 108 mmol/L (98-107); Glucose 71 mg/dL (74-99); Lipase 299 U/L (23-300); Non-African American GFR(CKD) 85 (>60 ml/min/1.73 sqM); Potassium 4.1 mmol/L (3.5-5.1); Sodium 141 mmol/L (137-145); Total Bilirubin 0.5 mg/dL (0.2-1.3)
[2022-08-26 16:01] VITALS: RESP 20
--- NOTE | 2022-08-26 16:41 | CT ---
EXAMINATION TYPE: CT abdomen pelvis w con DATE OF EXAM: 08/26/2022 COMPARISON: HISTORY: rectal bleeding CT DLP: 728.2 mGycm Automated exposure control for dose reduction was used. CONTRAST: Performed with IV Contrast, patient injected with 100 mL of Isovue 300. Images obtained from the diaphragm to the floor the pelvis with the IV contrast. There is some mild subsegmental atelectasis at the lung bases. Heart size is normal. No pericardial e ffusion. No pleural effusion. There are clips from cholecystectomy. Liver spleen appear intact. There is no pancreatic mass. Stomac h is intact. The bile ducts are not dilated. There is no adrenal mass. Kidneys show satisfactory contrast opacification. No hydronephrosis. Ureter s are not dilated. Abdominal aorta is atheromatous. There is aorto iliac bypass graft. There is moder ate plaque in the lower abdominal aorta and the common iliac arteries. No retroperitoneal adenopathy. The bladder distends smoothly. No inguinal hernia. No free fluid in the pelvis. There are surgical c lips in the pelvis. Uterus is anteverted. No mesenteric edema. No ascites or free air. No sign of a bowel obstruction. There are large bowel fl uid levels without dilation. The lumbar vertebrae have normal alignment. Posterior elements are intact. No compression fracture. B codey pelvis is intact. The hip joints are intact. IMPRESSION: Exam limited by lack of intestinal contrast. Previous surgery. There are fluid levels in the large b owel down to the rectum and suggestive of diarrhea.
[2022-08-26 17:01] VITALS: BP 113/62; PULSE 79; TEMP 97.7
== END 2022-08-26 17:04 | disposition home or self-care (01) ==
LOC: EC 12:34
DX: K92.1 Melena (principal); R19.7 Diarrhea, unspecified; E78.5 Hyperlipidemia, unspecified; I10 Essential (primary) hypertension; F41.9 Anxiety disorder, unspecified; Z79.899 Other long term (current) drug therapy; Z79.82 Long term (current) use of aspirin; Z88.1 Allergy status to other antibiotic agents; Z88.8 Allergy status to other drugs, medicaments and biological substances
CPT/HCPCS: 36415; 86900; 86901; 80053; 83690; 83735; 85025; 85610; 85730; 86850; 86870; 86880; 82272; 74177; 99285; 96374; 96361; C9113; Q9967

== ENCOUNTER → 2023-10-24 | Outpatient (CLI) | payer MEDICARE ==
[2023-10-25 07:47] LABS: Cryptosporidium Antigen Negative (Negative)
== END | disposition home or self-care (01) ==
LOC: LABWHC1 07:24
PROVIDERS: ATTEND Nurse Practitioner Family
DX: R19.7 Diarrhea, unspecified (principal)
CPT/HCPCS: 36415; 82272; 83630; 87045; 87046; 87324; 87328; 87329

== ENCOUNTER → 2023-10-31 | Outpatient (CLI) | payer MEDICARE ==
--- NOTE | 2023-10-31 22:12 | MM ---
Reason for Exam: Screening (asymptomatic). Last mammogram was performed 5 year(s) and 2 month(s) ago. Patient History: Menarche at age 11. First Full-Term at age 25. Postmenopausal. 2006, Benign Stereotactic Core Biopsy on the left side. Risk Values: Lakia 5 year model risk: 2.2%. NCI Lifetime model risk: 3.7%. Prior Study Comparison: 08/07/2018 Bilateral Screening Mammogram, [facility]. 08/21/2018 Right Diagnostic Mammogram, [facility]. 02/23/2019 Right Diagnostic Mammogram, [facility]. Tissue Density: The breasts are heterogeneously dense, which may obscure small masses. Findings: Analyzed By CAD. The pattern is symmetrical. Benign calcification is present No suspicious groups of microcalcifications, spiculated or lobular masses, architectural distortion or other secondary signs of malignancy are mammographically apparent. Overall Assessment: Benign, BI-RAD 2 Management: Screening Mammogram of both breasts in 1 year. A negative mammogram report should not preclude additional follow up of suspicious palpable abnormalities. Patient should continue monthly self breast exam. A clinical breast exam by your physician is recommended on an annual basis and results should be correlated with mammographic findings. Electronically signed and approved by: Raza Mckeon D.O. Radiologis
== END | disposition home or self-care (01) ==
LOC: RADMAMWWP 13:58
PROVIDERS: ATTEND Family Medicine
DX: Z12.31 Encounter for screening mammogram for malignant neoplasm of breast (principal); Z78.0 Asymptomatic menopausal state
CPT/HCPCS: 77063; 77067

== ENCOUNTER → 2024-01-13 | Outpatient (CLI) | payer MEDICARE ==
[2024-01-13 15:32] LABS: Basophils # (A) 0.04 X 10*3/uL (0.00-0.10); Basophils % (A) 0.9 %; Eosinophils # (A) 0.13 X 10*3/uL (0.04-0.35); Eosinophils % (A) 2.9 %; HCT 44.5 % (37.2-46.3); HGB 13.5 g/dL (12.0-15.0); Lymphocytes # (A) 1.32 X 10*3/uL (0.90-5.00); Lymphocytes % (A) 29.8 %; MCH 25.9 pg (27.0-32.0); MCHC 30.3 g/dL (32.0-37.0); MCV 85.4 FL (80.0-97.0); Mean Platelet Volume 10.4 FL (9.5-12.2); Monocytes # (A) 0.47 X 10*3/uL (0.20-1.00); Monocytes % (A) 10.6 %; NRBC Per 100 WBC 0 X 10*3/uL (0.00-0.01); Neutrophils # (A) 2.46 X 10*3/uL (1.80-7.70); Neutrophils % (A) 55.6 %; Platelet Count 241 X 10*3/uL (140-440); RBC 5.21 X 10*6/uL (4.10-5.20); RDW 19.9 % (11.5-14.5); WBC 4.43 X 10*3/uL (4.50-10.00)
[2024-01-13 15:50] LABS: ALT 28 U/L (8-44); AST 43 U/L (13-35); Albumin 4.7 g/dL (3.8-4.9); Albumin/Globulin Ratio 1.74 Ratio (1.60-3.17); Alkaline Phosphatase 101 U/L (41-126); BUN/Creat Ratio 11.67 Ratio (12.00-20.00); Blood Urea Nitrogen 10.5 mg/dL (9.0-27.0); C Reactive Protein <0.30 mg/dL (0.00-0.80); Calcium 9.6 mg/dL (8.7-10.3); Carbon Dioxide 24.3 mmol/L (21.6-31.8); Chloride 104 mmol/L (96-109); Globulin 2.7 g/dL (1.6-3.3); Glucose 91 mg/dL (70-110); Potassium 4.2 mmol/L (3.5-5.5); Sodium 142 mmol/L (135-145); Total Bilirubin 0.4 mg/dL (0.3-1.2); Total Protein 7.4 g/dL (6.2-8.2)
[2024-01-13 15:55] LABS: Erythrocyte Sedimentation Rate 14 mm/Hr (0-30)
[2024-01-13 19:12] LABS: Gliadin AB IgA, Deaminated Negative (Negative); Gliadin AB IgA, Unit 7.1 U/mL; Gliadin AB IgG, Deaminated Negative (Negative); Gliadin AB IgG, Unit <0.4 U/mL
== END | disposition home or self-care (01) ==
LOC: LABWHC1 09:50
PROVIDERS: ATTEND Internal Medicine Gastroenterology
DX: K52.9 Noninfective gastroenteritis and colitis, unspecified (principal)
CPT/HCPCS: 36415; 80053; 83516; 85025; 85652; 86140